=== PATIENT | male | born 1965 | race Caucasian/White ===

== ENCOUNTER → 2016-09-09 | Outpatient (CLI) | payer OTHER | LOC: RAD 08:00 | DX: M54.5 Low back pain (principal); M47.896 Other spondylosis, lumbar region; Z91.81 History of falling | CPT/HCPCS: 72148 ==

== ENCOUNTER → 2017-11-05 | Outpatient (CLI) | payer OTHER ==
[2017-11-05 08:15] LABS: ABSOLUTE BASOPHILS # (AUTO) 0.1 10^3/uL (0.0-0.2); ABSOLUTE EOSINOPHILS # (AUTO) 0.1 10^3/uL (0.0-0.6); ABSOLUTE LYMPHOCYTES (AUTO) 1.6 10^3/uL (0.5-4.7); ABSOLUTE MONOCYTES (AUTO) 0.6 10^3/uL (0.1-1.4); ABSOLUTE NEUT (AUTO) 3.6 10^3/uL (1.7-8.2); BASOPHILS % (AUTO) 0.9 % (0-2); EOSINOPHILS % (AUTO) 2.3 % (0-6); HEMATOCRIT 41.6 % (37.9-51.0); HEMOGLOBIN 13.8 g/dL (13.5-17.0); LYMPHOCYTES % (AUTO) 26.3 % (13-45); MEAN CORPUSCULAR HGB CONC 33.1 g/dL (32.0-36.0); MEAN CORPUSCULAR VOLUME 81 fl (80-97); MONOCYTES % (AUTO) 10.6 % (3-13); PLATELET COUNT 244 10^3/uL (150-450); RED BLOOD COUNT 5.11 10^6/uL (4.35-5.55); RED CELL DISTRIBUTION WIDTH 18.7 % (11.5-14.0); SEGMENTED NEUTROPHILS % (AUTO) 59.9 % (42-78); TOTAL CELLS COUNTED % (AUTO) 100 %; WHITE BLOOD COUNT 5.9 10^3/uL (4.0-10.5)
[2017-11-05 08:40] LABS: ANION GAP 13 (5-19); BLOOD UREA NITROGEN 8 mg/dL (7-20); CARBON DIOXIDE 30 mmol/L (22-30); CHLORIDE 99 mmol/L (98-107); GLUCOSE 87 mg/dL (75-110); POTASSIUM 4.3 mmol/L (3.6-5.0); SODIUM 142.3 mmol/L (137-145); URIC ACID 4.5 mg/dL (3.5-8.5)
[2017-11-05 08:41] LABS: CHOLESTEROL 237.05 mg/dL (0-200); TRIGLYCERIDES 163 mg/dL (<150)
[2017-11-05 08:51] LABS: DIRECT LDL 112 mg/dL (<100)
[2017-11-05 08:53] LABS: VLDL CHOLESTEROL 32.6 mg/dL (10-31)
== END ==
LOC: CCC 07:08
DX: J44.9 Chronic obstructive pulmonary disease, unspecified (principal); I10 Essential (primary) hypertension; E78.5 Hyperlipidemia, unspecified
CPT/HCPCS: 36415; 80048; 80061; 83036; 84443; 84550; 85025

== ENCOUNTER → 2017-12-25 | Outpatient (CLI) | payer OTHER ==
[~2017-12-25] MED LIST: ALBUTEROL SULFATE 0.083% NEB 2.5 MG/3 ML AMPUL NEB ONE
--- NOTE | 2017-12-25 11:46 | RADIOLOGY REPORT (SQ) ---
EXAM DESCRIPTION: CHEST 2 VIEWS COMPLETED DATE/TIME: 12/25/2017 8:38 am REASON FOR STUDY: COPD (J44.9) COMPARISON: July 2015 EXAM PARAMETERS: NUMBER OF VIEWS: two views TECHNIQUE: Digital Frontal and Lateral radiographic views of the chest acquired. RADIATION DOSE: NA LIMITATIONS: none FINDINGS: LUNGS AND PLEURA: No opacities, masses or pneumothorax. No pleural effusion. Previously d escribed chronic appearing changes appears stable. Again there is evidence for obstructive lung dise ase. MEDIASTINUM AND HILAR STRUCTURES: No masses or contour abnormalities. HEART AND VASCULAR STRUCTURES: Heart normal size. No evidence for failure. BONES: No acute findings. HARDWARE: None in the chest. OTHER: No other significant finding. IMPRESSION: No significant interval change. No acute findings. Other findings as noted above. TECHNICAL DOCUMENTATION: JOB ID: [id number] [employer]- All Rights Reserved Reading location - IP/workstation name: [email or web address]
--- NOTE | 2017-12-26 14:43 | Pulmonary Function Test ---
Pulmonary Function Test Date of Procedure:: 12/26/17 INDICATION:: Dyspnea/cough Referring Provider: Dr. Steele Top Loader: Quita Lyles COLLECTIONS SPECIALIST - Report Spirometry: FVC 3.18 L 72% postbronchodilator 3.36 L 76% FEV1 0.75 L 21% postbronchodilator 0.93 L 26% FEV1/FVC % 23 postbronchodilator 28 predicted 81 FEF 25-75% 0.26 L 7% postbronchodilator 0.35 L 9% Impression: Severe obstructive ventilatory defect with limited response to bronchodilator therapy.
== END ==
LOC: RT 07:26
PROVIDERS: ATTEND Family Medicine
DX: J44.9 Chronic obstructive pulmonary disease, unspecified (principal)
CPT/HCPCS: 71046; 94060; 94761

== ENCOUNTER 2018-06-05 18:21 | Inpatient (IN) | payer MEDICARE, OTHER ==
[~2018-06-05 18:21] MED LIST changes: -ALBUTEROL SULFATE 0.083% NEB 2.5 MG/3 ML AMPUL NEB ONE; +NORMAL SALINE 1000 ML 1,000 ML with POTASSIUM CHLORIDE 20 MEQ, MAGNESIUM SULFATE 8 MEQ,... IV SCH; +THIAMINE HCL 500 MG in NORMAL SALINE 250 ML IV SCH
[2018-06-05] MEDS ORDERED: NORMAL SALINE 1000 ML 1,000 ML IV ONE ×3 (19:13→21:00)
[2018-06-05] MEDS ORDERED: ALBUTEROL SULFATE 0.083% NEB 2.5 MG/3 ML AMPUL NEB ONE ×2 (19:14→21:00)
[2018-06-05] MEDS ORDERED: IPRATROPIUM/ALBUTEROL 0.5-2.5 MG/3 ML AMPUL NEB ONE ×2 (19:14→21:00)
--- NOTE | 2018-06-05 19:32 | ER Document Report ---
ED General - General Chief Complaint: Breathing Difficulty Stated Complaint: WEAKNESS Time Seen by Provider: 06/05/18 19:08 Mode of Arrival: Stretcher Information source: Patient, Relative TRAVEL OUTSIDE OF THE [place] IN LAST 30 DAYS: No - HPI Patient complains to provider of: Difficult to arouse, difficulty breathing, EtOH intoxication Onset: Just prior to arrival Quality of pain: No pain Notes: Patient is a 53-year-old male brought to the emergency room by EMS after family found him unresponsive, they attempted to awaken him several times and apparently thought he was because they could not wake him up, on EMS arrival patient was noted to have a pulse ox of 80%, BP 90/60, BGL of 84, and there was a multitude of alcohol present in the home, patient is also a smoker - Related Data Allergies/Adverse Reactions: No Known Allergies Allergy (Unverified 06/23/16 21:48) Past Medical History - General Information source: Patient - Social History Smoking Status: Current Every Day Smoker Frequency of alcohol use: Heavy Drug Abuse: Marijuana Family History: None Patient has suicidal ideation: No Patient has homicidal ideation: No - Past Medical History Cardiac Medical History: Reports: Hx Hypertension Pulmonary Medical History: Reports: Hx COPD Renal/ Medical History: Denies: Hx Peritoneal Dialysis Review of Systems - Review of Systems Constitutional: No symptoms reported EENT: No symptoms reported Cardiovascular: No symptoms reported Respiratory: See HPI Gastrointestinal: No symptoms reported Genitourinary: No symptoms reported Male Genitourinary: No symptoms reported Musculoskeletal: No symptoms reported Skin: No symptoms reported Hematologic/Lymphatic: No symptoms reported Neurological/Psychological: See HPI -: Yes All other systems reviewed and negative Physical Exam - Vital signs Vitals: Temp Pulse Resp BP Pulse Ox 97.6 F 107 H 20 113/69 91 L 06/05/18 18:28 06/05/18 18:28 06/05/18 18:28 06/05/18 18:28 06/05/18 18:28 Interpretation: Hypotensive, Tachycardic, Hypoxic - General General appearance: Alert In distress: None Notes: Disheveled, EtOH on breath - HEENT Head: Normocephalic, Atraumatic Eyes: Normal Conjunctiva: Normal Extraocular movements intact: Yes Eyelashes: Normal Pupils: PERRL Nasal: Other - Abrasions to nasal bridge - Respiratory Respiratory status: No respiratory distress Chest status: Nontender Breath sounds: Nonproductive cough, Rhonchi, Wheezing Chest palpation: Normal - Cardiovascular Rhythm: Regular, Tachycardia Heart sounds: Normal auscultation Murmur: No - Abdominal Inspection: Normal Distension: No distension Bowel sounds: Normal Tenderness: Nontender Organomegaly: No organomegaly - Back Back: Normal, Nontender - Extremities General upper extremity: Normal inspection, Nontender, Normal color, Normal ROM , Normal temperature General lower extremity: Normal inspection, Nontender, Normal color, Normal ROM , Normal temperature, Normal weight bearing. No: Kim's sign - Neurological Neuro grossly intact: Yes Cognition: Normal Orientation: Disoriented to events [place] Coma Scale Eye Opening: Spontaneous [place] Coma Scale Verbal: Oriented [place] Coma Scale Motor: Obeys Commands Donna Coma Scale Total: 15 Speech: Normal Motor strength normal: LUE, RUE, LLE, RLE Sensory: Normal - Psychological Associated symptoms: Normal affect, Normal mood - Skin Skin Temperature: Warm Skin Moisture: Dry Skin Color: Other - Dark leathery appearing skin Course - Re-evaluation Re-evalutation: 06/05/18 22:34 Patient continues to have wheezing, requires oxygen to maintain oxygen saturations above 90%, and remains borderline hypotensive despite multiple fluid bolus treatments, therefore discussed with the hospitalist service who agrees to admit for further evaluation and treatment, plan discussed with patient and family at bedside who are in agreement as well - Vital Signs Vital signs: Temp Pulse Resp BP Pulse Ox 97.6 F 107 H 20 113/69 91 L 06/05/18 18:28 06/05/18 18:28 06/05/18 18:28 06/05/18 18:28 06/05/18 18:28 - Laboratory Result Diagrams: 06/05/18 19:40 06/05/18 19:40 Laboratory results interpreted by me: 06/05/18 06/05/18 06/05/18 19:40 19:40 19:40 RDW 16.5 H Seg Neutrophils % 81.3 H Lymphocytes % 11.1 L Creatinine 1.49 H Est GFR ( Amer) 59 L Est GFR (Non-Af Amer) 49 L Lactic Acid 3.3 H AST 77 H - Diagnostic Test Radiology reviewed: Image reviewed, Reports reviewed - EKG Interpretation by Me EKG shows normal: Sinus rhythm Rate: Tachycardia Critical Care Note - Critical Care Note Total time excluding time spent on procedures (mins): 60 Comments: Patient hypotensive, hypoxic, decreased responsiveness, requiring multiple breathing treatments, multiple IV fluid boluses and admission Discharge - Discharge Clinical Impression: COPD exacerbation, Acute alcohol intoxication, Alcohol dependence, Decreased responsiveness, Nasal bone fracture Condition: Fair Disposition: ADMITTED INPATIENT Admitting Provider: Hospitalist Unit Admitted: [facility]
--- NOTE | 2018-06-05 20:03 | RADIOLOGY REPORT (SQ) ---
EXAM DESCRIPTION: CHEST SINGLE VIEW COMPLETED DATE/TIME: 06/05/2018 7:54 pm REASON FOR STUDY: db COMPARISON: 12/25/2017 EXAM PARAMETERS: NUMBER OF VIEWS: One view. TECHNIQUE: Single frontal radiographic view of the chest acquired. RADIATION DOSE: NA LIMITATIONS: None. FINDINGS: LUNGS AND PLEURA: Chronic interstitial changes. No acute infiltrate. No effusion. No ma ss. MEDIASTINUM AND HILAR STRUCTURES: No masses. Contour normal. HEART AND VASCULAR STRUCTURES: Heart normal in size. Normal vasculature. BONES: No acute findings. HARDWARE: None in the chest. OTHER: No other significant finding. IMPRESSION: Chronic lung changes with no acute cardiopulmonary findings. TECHNICAL DOCUMENTATION: JOB ID: [id number] [employer]- All Rights Reserved Reading location - IP/workstation name: [email or web address]
[2018-06-05 20:12] LABS: ABSOLUTE LYMPHOCYTES (AUTO) 1.1 10^3/uL (0.5-4.7); ABSOLUTE MONOCYTES (AUTO) 0.7 10^3/uL (0.1-1.4); ABSOLUTE NEUT (AUTO) 7.8 10^3/uL (1.7-8.2); BASOPHILS % (AUTO) 0.3 % (0-2); EOSINOPHILS % (AUTO) 0.1 % (0-6); HEMATOCRIT 45.6 % (37.9-51.0); HEMOGLOBIN 15.3 g/dL (13.5-17.0); LYMPHOCYTES % (AUTO) 11.1 % (13-45); MEAN CORPUSCULAR HEMOGLOBIN 30.1 pg (27.0-33.4); MEAN CORPUSCULAR HGB CONC 33.6 g/dL (32.0-36.0); MEAN CORPUSCULAR VOLUME 90 fl (80-97); MONOCYTES % (AUTO) 7.2 % (3-13); PLATELET COUNT 234 10^3/uL (150-450); RED BLOOD COUNT 5.09 10^6/uL (4.35-5.55); RED CELL DISTRIBUTION WIDTH 16.5 % (11.5-14.0); SEGMENTED NEUTROPHILS % (AUTO) 81.3 % (42-78); TOTAL CELLS COUNTED % (AUTO) 100 %; WHITE BLOOD COUNT 9.6 10^3/uL (4.0-10.5)
[2018-06-05 20:16] LABS: VENOUS BLOOD BASE EXCESS 1.2 mmol/L; VENOUS BLOOD HCO3 28.6 mmol/L (20-32); VENOUS BLOOD PCO2 55.6 mmHg (35-63); VENOUS BLOOD PH 7.33 (7.30-7.42)
[2018-06-05 20:19] LABS: INTERNATIONAL RATION (INR) 0.95; PROTHROMBIN TIME 13.1 SEC (11.4-15.4)
[2018-06-05 20:30] LABS: ALANINE AMINOTRANSFERASE 43 U/L (21-72); ALBUMIN 3.8 g/dL (3.5-5.0); ALKALINE PHOSPHATASE 111 U/L (38-126); ANION GAP 16 (5-19); ASPARTATE AMINO TRANSFERASE 77 U/L (17-59); BILIRUBIN,DIRECT 0.4 mg/dL (0.0-0.4); BILIRUBIN,TOTAL 0.6 mg/dL (0.2-1.3); BLOOD UREA NITROGEN 7 mg/dL (7-20); CALCIUM 8.5 mg/dL (8.4-10.2); CARBON DIOXIDE 29 mmol/L (22-30); CHLORIDE 98 mmol/L (98-107); GLUCOSE 89 mg/dL (75-110); POTASSIUM 4.2 mmol/L (3.6-5.0); SODIUM 142.7 mmol/L (137-145); TOTAL PROTEIN 7.4 g/dL (6.3-8.2)
[2018-06-05 20:30] LABS: APPEARANCE,URINE CLEAR; BILIRUBIN,URINE NEGATIVE (NEGATIVE); COLOR,URINE COLORLESS; GLUCOSE, URINE NEGATIVE (NEGATIVE); KETONES,URINE NEGATIVE (NEGATIVE); LEUKOCYTE ESTERASE,URINE NEGATIVE (NEGATIVE); NITRITE,URINE NEGATIVE (NEGATIVE); PROTEIN,URINE NEGATIVE (NEGATIVE); URINE SPECIFIC GRAVITY 1.002; UROBILINOGEN,URINE NEGATIVE mg/dL (<2.0)
[2018-06-05] MEDS ORDERED: METHYLPREDNISOLONE INJ 125 MG/2 ML SDV IV ONE (21:00)
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
[2018-06-05] MEDS ORDERED: TETANUS/DIPHTHERIA TOX-ADULT 0.5 ML SYR (>=7YO) IM ONE (22:24)
[2018-06-05] MEDS ORDERED: PROMETHAZINE HCL 25 MG TABLET PO PRN (23:03)
[2018-06-05] MEDS ORDERED: TEMAZEPAM 15 MG CAPSULE PO PRN (23:03)
[2018-06-05] MEDS ORDERED: METOCLOPRAMIDE HCL INJ/PF 10 MG/2 ML SDV IV PRN (23:03)
[2018-06-05] MEDS ORDERED: PANTOPRAZOLE SODIUM 40 MG VIAL IV STA (23:03)
[2018-06-05] MEDS ORDERED: ACETAMINOPHEN 325 MG TABLET PO PRN (23:03)
[2018-06-05] MEDS ORDERED: MAG HYDROX/AL HYDROX/SIMETH SUSP 30 ML UDCUP PO PRN (23:03)
[2018-06-05 23:23] LABS: URINE AMPHETAMINES SCREEN NEGATIVE; URINE BARBITURATES SCREEN NEGATIVE; URINE BENZODIAZEPINES SCREEN NEGATIVE; URINE COCAINE SCREEN NEGATIVE; URINE MARIJUANA (THC) SCREEN UNCONFIRMED POSITIVE; URINE METHADONE SCREEN NEGATIVE; URINE PHENCYCLIDINE SCREEN NEGATIVE
[2018-06-05] MEDS: LORAZEPAM INJ 2 MG/1 ML VIAL IV PRN (23:31)
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
[2018-06-06] MEDS ORDERED: NICOTINE 21 MG/24 HR PATCH.TD24 TD ONE (00:15)
[2018-06-06] MEDS: NORMAL SALINE 1000 ML 1,000 ML IV PRN ×3 (00:44→13:14)
[2018-06-06] MEDS ORDERED: THIAMINE HCL INJ 200 MG/2 ML VIAL IV PRN (01:06)
[2018-06-06] MEDS ORDERED: THIAMINE HCL IV ONE (01:15)
[2018-06-06] MEDS ORDERED: THIAMINE HCL 500 MG in NORMAL SALINE 250 ML IV ONE (01:15)
[2018-06-06] MEDS ORDERED: NORMAL SALINE IV ONE (01:15)
[2018-06-06] MEDS: HEPARIN SOD (PORCINE) 5,000 UNIT/ML 1 ML SYRINGE SUBCUT SCH ×3 (05:47→21:05)
[2018-06-06] MEDS: LORAZEPAM INJ 2 MG/1 ML VIAL IV PRN ×4 (05:51→19:43)
[2018-06-06 05:56] LABS: ABSOLUTE LYMPHOCYTES (AUTO) 0.3 10^3/uL (0.5-4.7); ABSOLUTE NEUT (AUTO) 3.6 10^3/uL (1.7-8.2); BASOPHILS % (AUTO) 0.1 % (0-2); HEMATOCRIT 37.8 % (37.9-51.0); LYMPHOCYTES % (AUTO) 7.3 % (13-45); MEAN CORPUSCULAR HEMOGLOBIN 30.2 pg (27.0-33.4); MEAN CORPUSCULAR HGB CONC 33.4 g/dL (32.0-36.0); MEAN CORPUSCULAR VOLUME 91 fl (80-97); MONOCYTES % (AUTO) 0.6 % (3-13); PLATELET COUNT 155 10^3/uL (150-450); RED BLOOD COUNT 4.17 10^6/uL (4.35-5.55); RED CELL DISTRIBUTION WIDTH 16.8 % (11.5-14.0); TOTAL CELLS COUNTED % (AUTO) 100 %; WHITE BLOOD COUNT 3.9 10^3/uL (4.0-10.5)
[2018-06-06 05:57] LABS: HEMOGLOBIN 12.6 g/dL (13.5-17.0); PROTHROMBIN TIME 13.7 SEC (11.4-15.4)
[2018-06-06 05:58] LABS: PARTIAL THROMBOPLASTIN TIME 30.2 SEC (23.5-35.8)
[2018-06-06 06:06] LABS: ALANINE AMINOTRANSFERASE 34 U/L (21-72); ALBUMIN 3.1 g/dL (3.5-5.0); ALKALINE PHOSPHATASE 75 U/L (38-126); ANION GAP 17 (5-19); ASPARTATE AMINO TRANSFERASE 57 U/L (17-59); BILIRUBIN,DIRECT 0.3 mg/dL (0.0-0.4); BILIRUBIN,TOTAL 0.5 mg/dL (0.2-1.3); BLOOD UREA NITROGEN 9 mg/dL (7-20); CALCIUM 7.3 mg/dL (8.4-10.2); CHLORIDE 107 mmol/L (98-107); GLUCOSE 109 mg/dL (75-110); POTASSIUM 4.2 mmol/L (3.6-5.0); SODIUM 140.7 mmol/L (137-145); TOTAL PROTEIN 6.2 g/dL (6.3-8.2)
[2018-06-06 06:24] LABS: CARBON DIOXIDE 17 mmol/L (22-30)
--- NOTE | 2018-06-06 07:55 | EKG REPORT ---
SEVERITY:- ABNORMAL ECG - SINUS TACHYCARDIA ANTERIOR INFARCT, OLD BORDERLINE PROLONGED QT INTERVAL : Confirmed by: Vinicio Stevens MD 06-Jun-2018 07:54:12
[2018-06-06] MEDS ORDERED: FOLIC ACID 1 MG TABLET PO SCH (10:00)
[2018-06-06] MEDS ORDERED: MULTIVITAMIN TABLET PO SCH (10:00)
[2018-06-06] MEDS ORDERED: THIAMINE HCL 100 MG TABLET PO SCH (10:00)
--- NOTE | 2018-06-06 10:11 | PDOC PROGRESS REPORT ---
Subjective Progress Note for:: 06/06/18 Subjective:: -year-old male admitted with hypoxia pulse ox was in the 80s in the ER he was also found to be in acute renal failure. He has chronic history of smoking and alcohol use. No acute episodes last night patient is comfortably in the bed smiling eating his breakfast. Reason For Visit: ACUTE RENAL FAILURE, DEHYDRATION, ACUTE ALCOHOL Physical Exam Vital Signs: Temp Pulse Resp BP Pulse Ox 97.8 F 110 H 20 90/61 L 94 06/06/18 02:51 06/06/18 07:00 06/06/18 02:51 06/06/18 02:51 06/06/18 02:51 Intake & Output 06/05/18 06/06/18 06/07/18 06:59 06:59 06:59 Intake Total 4170 Output Total 250 Balance 3920 Weight 72.9 kg General appearance: PRESENT: no acute distress Head exam: PRESENT: atraumatic Eye exam: PRESENT: PERRLA Neck exam: ABSENT: carotid bruit, JVD, lymphadenopathy, thyromegaly Respiratory exam: PRESENT: crackles, tachypnea, wheezes Cardiovascular exam: PRESENT: RRR. ABSENT: diastolic murmur, rubs, systolic murmur GI/Abdominal exam: PRESENT: normal bowel sounds, soft. ABSENT: distended, guarding, mass, organolmegaly, rebound, tenderness Neurological exam: PRESENT: alert, awake, oriented to person, oriented to place , oriented to time, oriented to situation, CN II-XII grossly intact. ABSENT: motor sensory deficit Psychiatric exam: PRESENT: appropriate affect, normal mood. ABSENT: homicidal ideation, suicidal ideation Results Laboratory Results: 06/06/18 05:33 06/06/18 05:33 06/05/18 06/06/18 06/06/18 23:42 05:33 05:33 WBC 3.9 L RBC 4.17 L Hgb 12.6 L D Hct 37.8 L MCV 91 MCH 30.2 MCHC 33.4 RDW 16.8 H Plt Count 155 Seg Neutrophils % 92.0 H Lymphocytes % 7.3 L Monocytes % 0.6 L Eosinophils % 0.0 Basophils % 0.1 Absolute Neutrophils 3.6 Absolute Lymphocytes 0.3 L Absolute Monocytes 0.0 L Absolute Eosinophils 0.0 Absolute Basophils 0.0 Sodium 140.7 Potassium 4.2 Chloride 107 Carbon Dioxide 17 L D Anion Gap 17 BUN 9 Creatinine 1.03 Est GFR ( Amer) > 60 Est GFR (Non-Af Amer) > 60 Glucose 109 Lactic Acid 5.2 H Calcium 7.3 L Phosphorus 4.0 Magnesium 1.5 L Total Bilirubin 0.5 AST 57 ALT 34 Alkaline Phosphatase 75 Total Protein 6.2 L Albumin 3.1 L 06/06/18 05:33 WBC RBC Hgb Hct MCV MCH MCHC RDW Plt Count Seg Neutrophils % Lymphocytes % Monocytes % Eosinophils % Basophils % Absolute Neutrophils Absolute Lymphocytes Absolute Monocytes Absolute Eosinophils Absolute Basophils Sodium Potassium Chloride Carbon Dioxide Anion Gap BUN Creatinine Est GFR ( Amer) Est GFR (Non-Af Amer) Glucose Lactic Acid 3.9 H Calcium Phosphorus Magnesium Total Bilirubin AST ALT Alkaline Phosphatase Total Protein Albumin Impressions: Chest X-Ray 06/05/18 19:13 IMPRESSION: Chronic lung changes with no acute cardiopulmonary findings. Head CT 06/05/18 21:00 IMPRESSION: Possible nasal bone fracture. Please correlate clinically. No skull fracture. No intracranial bleed. TECHNICAL DOCUMENTATION: Quality ID # [id number]: Final reports with documentation of one or more dose reduction techniques (e.g., Automated exposure control, adjustment of the mA and/or kV according to patient size, use of iterative reconstruction technique) copyright 2011 [employer]- All Rights Reserved Assessment & Plan - Diagnosis (1) Acute respiratory failure with hypoxia Is this a current diagnosis for this admission?: Yes Plan: 06/06/2018 patient was found to be unresponsive with O2 saturation of 80%. He is on nebulizations and as-needed basis on 2 L oxygen via nasal cannula pulse ox 's are much improved in the 90s today. He is a chronic smoker. He is also on IV Solu-Medrol. He is also on incentive spirometry. (2) Acute alcohol intoxication Qualifiers: Complication of substance-induced condition: uncomplicated Qualified Code(s ): F10.929 - Alcohol use, unspecified with intoxication, unspecified Is this a current diagnosis for this admission?: Yes Plan: 06/06/2018 patient has a long history of heavy alcohol use he was found to be unconscious before brought to the emergency room and his serum alcohol levels are 289 in the emergency room he was started on a banana bag today. He is also on IV Ativan as needed for alcohol withdrawal symptoms. So far no withdrawal symptoms. (3) COPD exacerbation Is this a current diagnosis for this admission?: Yes Plan: 06/06/2018 patient has chronic history of COPD secondary to chronic smoking. He he was found to be in acute respiratory failure in the ER. Presently he is on IV Solu-Medrol 120 mg. Getting nebulizer treatment every 3 to hours as needed and incentive spirometry. He was on prophylactic antibiotic azithromycin. (4) Acute renal failure Qualifiers: Acute renal failure type: unspecified Qualified Code(s): N17.9 - Acute kidney failure, unspecified Is this a current diagnosis for this admission?: Yes Plan: Patient was told found to be in acute renal failure in the ER. At the time of admission creatinine is 1.49. With IV fluids it is improved to 1.03. She is still hypotensive. Blood pressure is 90/60. (5) Lactic acidosis Is this a current diagnosis for this admission?: Yes Plan: 06/06/2018 initial lactic acid is 3.3 and lactic acid level is 5.2 on third is .3.9. (6) Tobacco dependence Is this a current diagnosis for this admission?: Yes Plan: 2017 patient is a chronic smoker, smokes at least 1 pack/day. Smoking cessation counseling was provided for more than 10 minutes. - Time Time Spent with patient: 15-24 minutes Medications reviewed and adjusted accordingly: Yes Anticipated discharge: Home
[2018-06-06] MEDS: AZITHROMYCIN 250 MG TABLET PO SCH (10:22)
[2018-06-06] MEDS: NICOTINE 21 MG/24 HR PATCH.TD24 TD SCH (10:22)
[2018-06-06] MEDS: IPRATROPIUM/ALBUTEROL 0.5-2.5 MG/3 ML AMPUL NEB PRN (11:00)
[2018-06-06] MEDS: NORMAL SALINE 1000 ML 1,000 ML with POTASSIUM CHLORIDE 20 MEQ, MAGNESIUM SULFATE 8 MEQ,... IV SCH ×5 (17:31)
[2018-06-07] MEDS: LORAZEPAM INJ 2 MG/1 ML VIAL IV PRN ×3 (00:47→14:35)
[2018-06-07] MEDS ORDERED: METOPROLOL TARTRATE PF/INJ 5 MG/5 ML SDV IV PRN (04:20)
[2018-06-07] MEDS: DIAZEPAM 5 MG TABLET PO SCH ×2 (05:12→14:34)
[2018-06-07] MEDS: HEPARIN SOD (PORCINE) 5,000 UNIT/ML 1 ML SYRINGE SUBCUT SCH ×2 (05:12→14:39)
[2018-06-07 05:56] LABS: ABSOLUTE LYMPHOCYTES (AUTO) 1.4 10^3/uL (0.5-4.7); ABSOLUTE MONOCYTES (AUTO) 0.6 10^3/uL (0.1-1.4); ABSOLUTE NEUT (AUTO) 4.6 10^3/uL (1.7-8.2); BASOPHILS % (AUTO) 0.3 % (0-2); EOSINOPHILS % (AUTO) 0.2 % (0-6); HEMATOCRIT 35.7 % (37.9-51.0); LYMPHOCYTES % (AUTO) 20.9 % (13-45); MEAN CORPUSCULAR HEMOGLOBIN 30.6 pg (27.0-33.4); MEAN CORPUSCULAR HGB CONC 33.7 g/dL (32.0-36.0); MEAN CORPUSCULAR VOLUME 91 fl (80-97); MONOCYTES % (AUTO) 8.5 % (3-13); PLATELET COUNT 122 10^3/uL (150-450); RED BLOOD COUNT 3.92 10^6/uL (4.35-5.55); RED CELL DISTRIBUTION WIDTH 16.3 % (11.5-14.0); SEGMENTED NEUTROPHILS % (AUTO) 70.1 % (42-78); TOTAL CELLS COUNTED % (AUTO) 100 %; WHITE BLOOD COUNT 6.5 10^3/uL (4.0-10.5)
[2018-06-07 06:29] LABS: ALANINE AMINOTRANSFERASE 28 U/L (21-72); ALBUMIN 2.7 g/dL (3.5-5.0); ALKALINE PHOSPHATASE 83 U/L (38-126); ANION GAP 10 (5-19); ASPARTATE AMINO TRANSFERASE 56 U/L (17-59); BILIRUBIN,DIRECT 0.2 mg/dL (0.0-0.4); BILIRUBIN,TOTAL 0.6 mg/dL (0.2-1.3); BLOOD UREA NITROGEN 12 mg/dL (7-20); CALCIUM 8.1 mg/dL (8.4-10.2); CARBON DIOXIDE 25 mmol/L (22-30); CHLORIDE 105 mmol/L (98-107); GLUCOSE 91 mg/dL (75-110); SODIUM 140.1 mmol/L (137-145); TOTAL PROTEIN 5.6 g/dL (6.3-8.2)
[2018-06-07] MEDS: NICOTINE 21 MG/24 HR PATCH.TD24 TD SCH (09:02)
[2018-06-07] MEDS: AZITHROMYCIN 250 MG TABLET PO SCH (09:02)
[2018-06-07] MEDS ORDERED: HALOPERIDOL 5 MG TABLET PO PRN (09:24)
--- NOTE | 2018-06-07 09:37 | PDOC PROGRESS REPORT ---
Subjective Progress Note for:: 06/07/18 Subjective:: 06/06/2018 53-year-old male admitted with hypoxia pulse ox was in the 80s in the ER he was also found to be in acute renal failure. He has chronic history of smoking and alcohol use. No acute episodes last night patient is comfortably in the bed smiling eating his breakfast. 06/07/2018 53-year-old male admitted with alcohol withdrawals and acute renal failure. His creatinine was 0.65. Last night patient was agitated and he was started on diazepam 10 mg. P.o. every 8 hours in addition to the medications already getting 2 mg of Ativan IV every 4 as needed. This morning he was agitated and anxious and not communicating well but is alert and awake. #1 to start him on Haldol 5 mg p.o. every 8 hours as needed. Blood cultures are growing gram-positive cocci in 1 bottle. Reason For Visit: ACUTE RENAL FAILURE, DEHYDRATION, ACUTE ALCOHOL Physical Exam Vital Signs: Temp Pulse Resp BP Pulse Ox 97.4 F 102 H 23 H 168/99 H 96 06/07/18 04:34 06/07/18 04:34 06/07/18 04:34 06/07/18 04:34 06/07/18 04:34 Intake & Output 06/06/18 06/07/18 06/08/18 06:59 06:59 06:59 Intake Total 1597 1023 Output Total 550 Balance 1597 473 Weight 76 kg General appearance: PRESENT: mild distress Head exam: PRESENT: atraumatic Eye exam: PRESENT: PERRLA Neck exam: ABSENT: carotid bruit, JVD, lymphadenopathy, thyromegaly Respiratory exam: PRESENT: decreased breath sounds, rales, tachypnea, wheezes Cardiovascular exam: PRESENT: tachycardia GI/Abdominal exam: PRESENT: normal bowel sounds, soft. ABSENT: distended, guarding, mass, organolmegaly, rebound, tenderness Neurological exam: PRESENT: other - Patient is confused, anxious, mildly agitated, may be he is getting into DTs. Psychiatric exam: PRESENT: anxious Results Laboratory Results: 06/07/18 04:48 06/07/18 04:48 06/07/18 06/07/18 04:48 04:48 WBC 6.5 RBC 3.92 L Hgb 12.0 L Hct 35.7 L MCV 91 MCH 30.6 MCHC 33.7 RDW 16.3 H Plt Count 122 L Seg Neutrophils % 70.1 Lymphocytes % 20.9 Monocytes % 8.5 Eosinophils % 0.2 Basophils % 0.3 Absolute Neutrophils 4.6 Absolute Lymphocytes 1.4 Absolute Monocytes 0.6 Absolute Eosinophils 0.0 Absolute Basophils 0.0 Sodium 140.1 Potassium 4.0 Chloride 105 Carbon Dioxide 25 Anion Gap 10 BUN 12 Creatinine 0.65 Est GFR ( Amer) > 60 Est GFR (Non-Af Amer) > 60 Glucose 91 Calcium 8.1 L Magnesium 2.1 Total Bilirubin 0.6 AST 56 ALT 28 Alkaline Phosphatase 83 Total Protein 5.6 L Albumin 2.7 L Impressions: Chest X-Ray 06/05/18 19:13 IMPRESSION: Chronic lung changes with no acute cardiopulmonary findings. Head CT 06/05/18 21:00 IMPRESSION: Possible nasal bone fracture. Please correlate clinically. No skull fracture. No intracranial bleed. TECHNICAL DOCUMENTATION: Quality ID # [id number]: Final reports with documentation of one or more dose reduction techniques (e.g., Automated exposure control, adjustment of the mA and/or kV according to patient size, use of iterative reconstruction technique) copyright 2010 [employer]- All Rights Reserved Assessment & Plan - Diagnosis (1) Acute alcohol intoxication Qualifiers: Complication of substance-induced condition: uncomplicated Qualified Code(s ): F10.929 - Alcohol use, unspecified with intoxication, unspecified Is this a current diagnosis for this admission?: Yes Plan: 06/06/2018 patient has a long history of heavy alcohol use he was found to be unconscious before brought to the emergency room and his serum alcohol levels are 289 in the emergency room he was started on a banana bag today. He is also on IV Ativan as needed for alcohol withdrawal symptoms. So far no withdrawal symptoms. 06/07/2018 patient has chronic history of heavy alcohol use he was in IV Ativan 2 mg every 4 hours as needed, was started on diazepam 10 mg p.o. every 8 hours. Last night and this morning patient is still agitated and anxious I started him on Haldol 5 mg p.o. every 8 hours as needed. Will closely monitor the mental status. The alcohol level in the emergency room is 289. (2) Acute respiratory failure with hypoxia Is this a current diagnosis for this admission?: Yes Plan: 06/06/2018 patient was found to be unresponsive with O2 saturation of 80%. He is on nebulizations and as-needed basis on 2 L oxygen via nasal cannula pulse ox 's are much improved in the 90s today. He is a chronic smoker. He is also on IV Solu-Medrol. He is also on incentive spirometry. 06/07/2018 on examination today patient chest bilateral wheezing is present, decreased bilateral air entry, rales. He is on nebulizations every 4 as needed. He is on ipratropium/albuterol sulfate nebulizations. I am going to put him on IV Solu-Medrol 60 mg every 12 hours. (3) COPD exacerbation Is this a current diagnosis for this admission?: Yes Plan: 06/06/2018 patient has chronic history of COPD secondary to chronic smoking. He he was found to be in acute respiratory failure in the ER. Presently he is on IV Solu-Medrol 120 mg. Getting nebulizer treatment every 3 to hours as needed and incentive spirometry. He was on prophylactic antibiotic azithromycin. 06/07/2018 patient has history of COPD secondary to smoking his pulse ox are low in the emergency room in acute on chronic respiratory failure in the ER he is getting nebulizations every 4 as needed and incentive spirometry. I started him on IV Rocephin 1 g daily today. (4) Acute renal failure Qualifiers: Acute renal failure type: unspecified Qualified Code(s): N17.9 - Acute kidney failure, unspecified Is this a current diagnosis for this admission?: Yes Plan: Patient was told found to be in acute renal failure in the ER. At the time of admission creatinine is 1.49. With IV fluids it is improved to 1.03. She is still hypotensive. Blood pressure is 90/60. 06/07/2018 on admission creatinine is 1.49. He was started on IV fluids. Blood pressure is elevated 168/99. At this point he is on normal saline at 150 cc/h. Creatinine is 0.65. Acute renal failure is resolved. I decreased IV fluids to 50 cc/h. (5) Lactic acidosis Is this a current diagnosis for this admission?: Yes Plan: 06/06/2018 initial lactic acid is 3.3 and lactic acid level is 5.2 on third is .3.9. 06/07/2018 latest lactic acid level is 3.7. I started him on IV Rocephin 1 g daily today. He is afebrile. The blood cultures 1 bottle shows gram-positive cocci. (6) Tobacco dependence Is this a current diagnosis for this admission?: Yes Plan: 06/06/2018 patient is a chronic smoker, smokes at least 1 pack/day. Smoking cessation counseling was provided for more than 10 minutes. 06/07/2018. Patient is a long chronic history of smoking. Smoking counseling was provided today. - Time Time Spent with patient: 15-24 minutes Medications reviewed and adjusted accordingly: Yes Anticipated discharge: Home
[2018-06-07] MEDS: IPRATROPIUM/ALBUTEROL 0.5-2.5 MG/3 ML AMPUL NEB PRN ×3 (09:49→20:42)
[2018-06-07] MEDS ORDERED: CEFTRIAXONE INJ 1000 MG VIAL IV SCH (10:00)
[2018-06-07] MEDS: METHYLPREDNISOLONE INJ 125 MG/2 ML SDV IV SCH (10:21)
[2018-06-07] MEDS: NORMAL SALINE 1000 ML 1,000 ML IV PRN (10:26)
[2018-06-07] MEDS: CEFTRIAXONE SODIUM 1,000 MG in DEXTROSE 5%-WATER 50 ML IV SCH (11:18)
[2018-06-07] MEDS: HYDROCHLOROTHIAZIDE 25 MG TABLET PO SCH (18:30)
[2018-06-07] MEDS: NORMAL SALINE 1000 ML 1,000 ML with POTASSIUM CHLORIDE 20 MEQ, MAGNESIUM SULFATE 8 MEQ,... IV SCH ×5 (18:31)
[2018-06-08] MEDS: HEPARIN SOD (PORCINE) 5,000 UNIT/ML 1 ML SYRINGE SUBCUT SCH ×4 (00:02→23:13)
[2018-06-08] MEDS: LORAZEPAM INJ 2 MG/1 ML VIAL IV PRN ×5 (01:59→23:12)
[2018-06-08] MEDS: DIAZEPAM 5 MG TABLET PO SCH ×4 (05:00→23:12)
[2018-06-08] MEDS: NORMAL SALINE 1000 ML 1,000 ML IV PRN (05:06)
[2018-06-08 05:33] LABS: ABSOLUTE LYMPHOCYTES (AUTO) 0.5 10^3/uL (0.5-4.7); ABSOLUTE MONOCYTES (AUTO) 0.2 10^3/uL (0.1-1.4); ABSOLUTE NEUT (AUTO) 7.1 10^3/uL (1.7-8.2); HEMATOCRIT 38.2 % (37.9-51.0); HEMOGLOBIN 12.8 g/dL (13.5-17.0); MEAN CORPUSCULAR HEMOGLOBIN 30.2 pg (27.0-33.4); MEAN CORPUSCULAR HGB CONC 33.5 g/dL (32.0-36.0); MEAN CORPUSCULAR VOLUME 90 fl (80-97); MONOCYTES % (AUTO) 2.8 % (3-13); PLATELET COUNT 118 10^3/uL (150-450); RED BLOOD COUNT 4.24 10^6/uL (4.35-5.55); RED CELL DISTRIBUTION WIDTH 15.9 % (11.5-14.0); SEGMENTED NEUTROPHILS % (AUTO) 91.2 % (42-78); TOTAL CELLS COUNTED % (AUTO) 100 %; WHITE BLOOD COUNT 7.8 10^3/uL (4.0-10.5)
[2018-06-08 05:55] LABS: ALANINE AMINOTRANSFERASE 44 U/L (21-72); ALBUMIN 3.3 g/dL (3.5-5.0); ALKALINE PHOSPHATASE 85 U/L (38-126); ANION GAP 12 (5-19); ASPARTATE AMINO TRANSFERASE 85 U/L (17-59); BILIRUBIN,DIRECT 0.3 mg/dL (0.0-0.4); BILIRUBIN,TOTAL 0.9 mg/dL (0.2-1.3); BLOOD UREA NITROGEN 8 mg/dL (7-20); CALCIUM 9.3 mg/dL (8.4-10.2); CARBON DIOXIDE 29 mmol/L (22-30); CHLORIDE 99 mmol/L (98-107); GLUCOSE 131 mg/dL (75-110); POTASSIUM 3.8 mmol/L (3.6-5.0); SODIUM 139.8 mmol/L (137-145); TOTAL PROTEIN 6.5 g/dL (6.3-8.2)
[2018-06-08] MEDS ORDERED: METOPROLOL TARTRATE 25 MG TABLET PO ONE (06:15)
[2018-06-08] MEDS ORDERED: DIVALPROEX SODIUM 500 MG TAB.SR.24H PO ONE (07:00)
[2018-06-08] MEDS: IPRATROPIUM/ALBUTEROL 0.5-2.5 MG/3 ML AMPUL NEB PRN ×3 (08:04→19:36)
[2018-06-08] MEDS: HYDROCHLOROTHIAZIDE 25 MG TABLET PO SCH (08:18)
[2018-06-08] MEDS: METHYLPREDNISOLONE INJ 125 MG/2 ML SDV IV SCH ×3 (09:22→23:09)
[2018-06-08] MEDS: NICOTINE 21 MG/24 HR PATCH.TD24 TD SCH (09:22)
--- NOTE | 2018-06-08 10:20 | PDOC PROGRESS REPORT ---
Subjective Progress Note for:: 06/08/18 Subjective:: 06/06/2018 53-year-old male admitted with hypoxia pulse ox was in the 80s in the ER he was also found to be in acute renal failure. He has chronic history of smoking and alcohol use. No acute episodes last night patient is comfortably in the bed smiling eating his breakfast. 06/07/2018 53-year-old male admitted with alcohol withdrawals and acute renal failure. His creatinine was 0.65. Last night patient was agitated and he was started on diazepam 10 mg. P.o. every 8 hours in addition to the medications already getting 2 mg of Ativan IV every 4 as needed. This morning he was agitated and anxious and not communicating well but is alert and awake. #1 to start him on Haldol 5 mg p.o. every 8 hours as needed. Blood cultures are growing gram-positive cocci in 1 bottle. 06/08/2018. Patient was agitated and belligerent from last night. He was placed on restraints. He wants To come off. And he is using offensive language towards the staff. He is afebrile. Reason For Visit: ACUTE RENAL FAILURE, DEHYDRATION, ACUTE ALCOHOL Physical Exam Vital Signs: Temp Pulse Resp BP Pulse Ox 98.6 F 75 17 176/92 H 96 06/08/18 08:00 06/08/18 08:04 06/08/18 08:04 06/08/18 08:00 06/08/18 08:04 Intake & Output 06/07/18 06/08/18 06/09/18 06:59 06:59 06:59 Intake Total 1597 3081 1023 Output Total 3850 Balance 1597 -769 1023 Weight 76 kg 76.1 kg General appearance: PRESENT: no acute distress Head exam: PRESENT: atraumatic Eye exam: PRESENT: PERRLA Neck exam: ABSENT: carotid bruit, JVD, lymphadenopathy, thyromegaly Respiratory exam: PRESENT: wheezes Cardiovascular exam: PRESENT: tachycardia GI/Abdominal exam: PRESENT: normal bowel sounds, soft. ABSENT: distended, guarding, mass, organolmegaly, rebound, tenderness Neurological exam: PRESENT: alert, awake Psychiatric exam: PRESENT: agitated Results Laboratory Results: 06/08/18 04:30 06/08/18 04:30 06/07/18 06/08/1806/08/18 11:25 04:30 04:30 WBC 7.8 RBC 4.24 L Hgb 12.8 L Hct 38.2 MCV 90 MCH 30.2 MCHC 33.5 RDW 15.9 H Plt Count 118 L Seg Neutrophils % 91.2 H Lymphocytes % 6.0 L Monocytes % 2.8 L Eosinophils % 0.0 Basophils % 0.0 Absolute Neutrophils 7.1 Absolute Lymphocytes 0.5 Absolute Monocytes 0.2 Absolute Eosinophils 0.0 Absolute Basophils 0.0 Sodium 139.8 Potassium 3.8 Chloride 99 Carbon Dioxide 29 Anion Gap 12 BUN 8 Creatinine 0.62 Est GFR ( Amer) > 60 Est GFR (Non-Af Amer) > 60 Glucose 131 H Lactic Acid 0.9 Calcium 9.3 Magnesium 1.7 Total Bilirubin 0.9 AST 85 H ALT 44 Alkaline Phosphatase 85 Total Protein 6.5 Albumin 3.3 L Impressions: Chest X-Ray 06/05/18 19:13 IMPRESSION: Chronic lung changes with no acute cardiopulmonary findings. Head CT 06/05/18 21:00 IMPRESSION: Possible nasal bone fracture. Please correlate clinically. No skull fracture. No intracranial bleed. TECHNICAL DOCUMENTATION: Quality ID # [id number]: Final reports with documentation of one or more dose reduction techniques (e.g., Automated exposure control, adjustment of the mA and/or kV according to patient size, use of iterative reconstruction technique) copyright 2011 [employer]- All Rights Reserved Assessment & Plan - Diagnosis (1) Acute alcohol intoxication Qualifiers: Complication of substance-induced condition: uncomplicated Qualified Code(s ): F10.929 - Alcohol use, unspecified with intoxication, unspecified Is this a current diagnosis for this admission?: Yes Plan: 06/06/2018 patient has a long history of heavy alcohol use he was found to be unconscious before brought to the emergency room and his serum alcohol levels are 289 in the emergency room he was started on a banana bag today. He is also on IV Ativan as needed for alcohol withdrawal symptoms. So far no withdrawal symptoms. 06/07/2018 patient has chronic history of heavy alcohol use he was in IV Ativan 2 mg every 4 hours as needed, was started on diazepam 10 mg p.o. every 8 hours. Last night and this morning patient is still agitated and anxious I started him on Haldol 5 mg p.o. every 8 hours as needed. Will closely monitor the mental status. The alcohol level in the emergency room is 289. 06/08/2018 patient has history of heavy alcohol use. He is on Ativan 2 mg IV every 3 as needed, Haldol 5 mg p.o. every 8 hours, diazepam 10 mg p.o. every 8 hours. He still agitated and angry. Was placed in the restraints because of protective measure. Wants to be restrained self. to Change Haldol from 5 mg p.o. to 5 mg IV every 8 hours as needed. (2) Acute respiratory failure with hypoxia Is this a current diagnosis for this admission?: Yes Plan: 06/06/2018 patient was found to be unresponsive with O2 saturation of 80%. He is on nebulizations and as-needed basis on 2 L oxygen via nasal cannula pulse ox 's are much improved in the 90s today. He is a chronic smoker. He is also on IV Solu-Medrol. He is also on incentive spirometry. 06/07/2018 on examination today patient chest bilateral wheezing is present, decreased bilateral air entry, rales. He is on nebulizations every 4 as needed. He is on ipratropium/albuterol sulfate nebulizations. I am going to put him on IV Solu-Medrol 60 mg every 12 hours. 06/08/2018. Patient pulse ox is improving. But on examination continue to have a extensive wheezing all over the lung almodovar. IV Solu-Medrol 60 mg every 12 hours. He is also getting a nebulizer treatments. He is on Rocephin 1 g daily. Which is her negative so far. (3) COPD exacerbation Is this a current diagnosis for this admission?: Yes Plan: 06/06/2018 patient has chronic history of COPD secondary to chronic smoking. He he was found to be in acute respiratory failure in the ER. Presently he is on IV Solu-Medrol 120 mg. Getting nebulizer treatment every 3 to hours as needed and incentive spirometry. He was on prophylactic antibiotic azithromycin. 06/07/2018 patient has history of COPD secondary to smoking his pulse ox are low in the emergency room in acute on chronic respiratory failure in the ER he is getting nebulizations every 4 as needed and incentive spirometry. I started him on IV Rocephin 1 g daily today. 06/08/2018 patient has history of COPD secondary to smoking. Continued to have expiratory and inspiratory wheezing. And mild shortness of breath. Be going to continue IV Solu-Medrol IV antibiotics and incentive Spirometry along with nebulizations. (4) Acute renal failure Qualifiers: Acute renal failure type: unspecified Qualified Code(s): N17.9 - Acute kidney failure, unspecified Is this a current diagnosis for this admission?: Yes Plan: Patient was told found to be in acute renal failure in the ER. At the time of admission creatinine is 1.49. With IV fluids it is improved to 1.03. She is still hypotensive. Blood pressure is 90/60. 06/07/2018 on admission creatinine is 1.49. He was started on IV fluids. Blood pressure is elevated 168/99. At this point he is on normal saline at 150 cc/h. Creatinine is 0.65. Acute renal failure is resolved. I decreased IV fluids to 50 cc/h. 06/08/2018. Vision creatinine is 1.49 it was improved to 0.62 today. I am going to stop the IV fluids. (5) Lactic acidosis Is this a current diagnosis for this admission?: Yes Plan: 06/06/2018 initial lactic acid is 3.3 and lactic acid level is 5.2 on third is .3.9. 06/07/2018 latest lactic acid level is 3.7. I started him on IV Rocephin 1 g daily today. He is afebrile. The blood cultures 1 bottle shows gram-positive cocci. 06/08/2018 tested lactic acid level is 0.9. Blood cultures are negative. pt is getting IV Rocephin 1 g daily. (6) Tobacco dependence Is this a current diagnosis for this admission?: Yes (7) HTN (hypertension) Is this a current diagnosis for this admission?: Yes Plan: 06/08/2018 his blood pressure today is 176/92. Elevated for the last couple of days. He is on hydrochlorothiazide 25 mg p.o. daily, metoprolol 25 mg p.o. daily. to start on lisinopril 5 mg p.o. daily. - Time Time Spent with patient: 15-24 minutes Medications reviewed and adjusted accordingly: Yes Anticipated discharge: Home
[2018-06-08] MEDS: CEFTRIAXONE SODIUM 1,000 MG in DEXTROSE 5%-WATER 50 ML IV SCH (10:40)
[2018-06-08] MEDS: HALOPERIDOL LACTATE INJ 5 MG/1 ML VIAL IV PRN (10:40)
[2018-06-08] MEDS: NORMAL SALINE 1000 ML 1,000 ML with POTASSIUM CHLORIDE 20 MEQ, MAGNESIUM SULFATE 8 MEQ,... IV SCH ×5 (17:13)
[2018-06-09] MEDS: HALOPERIDOL LACTATE INJ 5 MG/1 ML VIAL IV PRN (01:03)
[2018-06-09 04:54] LABS: ABSOLUTE LYMPHOCYTES (AUTO) 0.6 10^3/uL (0.5-4.7); ABSOLUTE MONOCYTES (AUTO) 0.2 10^3/uL (0.1-1.4); ABSOLUTE NEUT (AUTO) 5.1 10^3/uL (1.7-8.2); BASOPHILS % (AUTO) 0.2 % (0-2); HEMATOCRIT 38.2 % (37.9-51.0); LYMPHOCYTES % (AUTO) 9.5 % (13-45); MEAN CORPUSCULAR HEMOGLOBIN 30.4 pg (27.0-33.4); MEAN CORPUSCULAR VOLUME 89 fl (80-97); RED BLOOD COUNT 4.28 10^6/uL (4.35-5.55); RED CELL DISTRIBUTION WIDTH 16.1 % (11.5-14.0); SEGMENTED NEUTROPHILS % (AUTO) 86.3 % (42-78); TOTAL CELLS COUNTED % (AUTO) 100 %; WHITE BLOOD COUNT 5.9 10^3/uL (4.0-10.5)
[2018-06-09 05:13] LABS: PLATELET COUNT 97 10^3/uL (150-450)
[2018-06-09 05:14] LABS: ALANINE AMINOTRANSFERASE 68 U/L (21-72); ALBUMIN 3.5 g/dL (3.5-5.0); ALKALINE PHOSPHATASE 71 U/L (38-126); ANION GAP 9 (5-19); ASPARTATE AMINO TRANSFERASE 127 U/L (17-59); BILIRUBIN,DIRECT 0.3 mg/dL (0.0-0.4); BILIRUBIN,TOTAL 0.9 mg/dL (0.2-1.3); BLOOD UREA NITROGEN 9 mg/dL (7-20); CALCIUM 9.1 mg/dL (8.4-10.2); CARBON DIOXIDE 32 mmol/L (22-30); CHLORIDE 99 mmol/L (98-107); GLUCOSE 125 mg/dL (75-110); POTASSIUM 3.9 mmol/L (3.6-5.0); SODIUM 139.8 mmol/L (137-145); TOTAL PROTEIN 6.6 g/dL (6.3-8.2)
[2018-06-09] MEDS: HEPARIN SOD (PORCINE) 5,000 UNIT/ML 1 ML SYRINGE SUBCUT SCH ×3 (06:41→21:38)
--- NOTE | 2018-06-09 09:06 | PDOC PROGRESS REPORT ---
Subjective Progress Note for:: 06/09/18 Subjective:: 06/06/2018 53-year-old male admitted with hypoxia pulse ox was in the 80s in the ER he was also found to be in acute renal failure. He has chronic history of smoking and alcohol use. No acute episodes last night patient is comfortably in the bed smiling eating his breakfast. 06/07/2018 53-year-old male admitted with alcohol withdrawals and acute renal failure. His creatinine was 0.65. Last night patient was agitated and he was started on diazepam 10 mg. P.o. every 8 hours in addition to the medications already getting 2 mg of Ativan IV every 4 as needed. This morning he was agitated and anxious and not communicating well but is alert and awake. #1 to start him on Haldol 5 mg p.o. every 8 hours as needed. Blood cultures are growing gram-positive cocci in 1 bottle. 06/08/2018. Patient was agitated and belligerent from last night. He was placed on restraints. He wants To come off. And he is using offensive language towards the staff. He is afebrile. 06/09/2018-patient is comfortably sleeping in bed he was placed on restraints yesterday. The report from the nurses indicates patient is more calm and more alert. She is afebrile in the last 24 hours. No acute events. Reason For Visit: ACUTE RENAL FAILURE, DEHYDRATION, ACUTE ALCOHOL Physical Exam Vital Signs: Temp Pulse Resp BP Pulse Ox 97.7 F 79 16 162/98 H 96 06/09/18 04:15 06/09/18 04:15 06/09/18 04:15 06/09/18 04:15 06/09/18 04:15 Intake & Output 06/08/18 06/09/18 06/10/18 06:59 06:59 06:59 Intake Total 3083 3012 Output Total 4721 5553 Balance -349 -4031 Weight 76.1 kg 71.7 kg General appearance: PRESENT: no acute distress Head exam: PRESENT: atraumatic Eye exam: PRESENT: PERRLA Mouth exam: PRESENT: moist Neck exam: ABSENT: carotid bruit, JVD, lymphadenopathy, thyromegaly Respiratory exam: PRESENT: rhonchi, wheezes Cardiovascular exam: PRESENT: tachycardia GI/Abdominal exam: PRESENT: normal bowel sounds, soft. ABSENT: distended, guarding, mass, organolmegaly, rebound, tenderness Neurological exam: PRESENT: other - Sleeping comfortably in the bed not agitated he is on restraints. Psychiatric exam: PRESENT: other - received halodol 2 hours ago he is comfortably asleep in the bed. Results Laboratory Results: 06/09/18 04:30 06/09/18 04:30 06/09/18 06/09/18 04:30 04:30 WBC 5.9 RBC 4.28 L Hgb 13.0 L Hct 38.2 MCV 89 MCH 30.4 MCHC 34.0 RDW 16.1 H Plt Count 97 L Seg Neutrophils % 86.3 H Lymphocytes % 9.5 L Monocytes % 4.0 Eosinophils % 0.0 Basophils % 0.2 Absolute Neutrophils 5.1 Absolute Lymphocytes 0.6 Absolute Monocytes 0.2 Absolute Eosinophils 0.0 Absolute Basophils 0.0 Sodium 139.8 Potassium 3.9 Chloride 99 Carbon Dioxide 32 H Anion Gap 9 BUN 9 Creatinine 0.64 Est GFR ( Amer) > 60 Est GFR (Non-Af Amer) > 60 Glucose 125 H Calcium 9.1 Magnesium 1.9 Total Bilirubin 0.9 AST 127 H ALT 68 Alkaline Phosphatase 71 Total Protein 6.6 Albumin 3.5 Impressions: Chest X-Ray 06/05/18 19:13 IMPRESSION: Chronic lung changes with no acute cardiopulmonary findings. Head CT 06/05/18 21:00 IMPRESSION: Possible nasal bone fracture. Please correlate clinically. No skull fracture. No intracranial bleed. TECHNICAL DOCUMENTATION: Quality ID # 436: Final reports with documentation of one or more dose reduction techniques (e.g., Automated exposure control, adjustment of the mA and/or kV according to patient size, use of iterative reconstruction technique) copyright 2010 [employer]- All Rights Reserved Assessment & Plan - Diagnosis (1) Acute alcohol intoxication Qualifiers: Complication of substance-induced condition: uncomplicated Qualified Code(s ): F10.929 - Alcohol use, unspecified with intoxication, unspecified Is this a current diagnosis for this admission?: Yes Plan: 06/06/2018 patient has a long history of heavy alcohol use he was found to be unconscious before brought to the emergency room and his serum alcohol levels are 289 in the emergency room he was started on a banana bag today. He is also on IV Ativan as needed for alcohol withdrawal symptoms. So far no withdrawal symptoms. 06/07/2018 patient has chronic history of heavy alcohol use he was in IV Ativan 2 mg every 4 hours as needed, was started on diazepam 10 mg p.o. every 8 hours. Last night and this morning patient is still agitated and anxious I started him on Haldol 5 mg p.o. every 8 hours as needed. Will closely monitor the mental status. The alcohol level in the emergency room is 289. 06/08/2018 patient has history of heavy alcohol use. He is on Ativan 2 mg IV every 3 as needed, Haldol 5 mg p.o. every 8 hours, diazepam 10 mg p.o. every 8 hours. He still agitated and angry. Was placed in the restraints because of protective measure. Wants to be restrained self. to Change Haldol from 5 mg p.o. to 5 mg IV every 8 hours as needed. 06/09/2018. Patient is still on restraints. Sleeping comfortably in the bed. As per the nursing report he had not slept at all last night. He is on Ativan 2 mg IV every 3 as needed, diazepam 10 mg p.o. every 8 hours, Haldol 5 mg IV every 8 hours as needed. We are going to continue the present management. (2) Acute respiratory failure with hypoxia Is this a current diagnosis for this admission?: Yes Plan: 06/06/2018 patient was found to be unresponsive with O2 saturation of 80%. He is on nebulizations and as-needed basis on 2 L oxygen via nasal cannula pulse ox 's are much improved in the 90s today. He is a chronic smoker. He is also on IV Solu-Medrol. He is also on incentive spirometry. 06/07/2018 on examination today patient chest bilateral wheezing is present, decreased bilateral air entry, rales. He is on nebulizations every 4 as needed. He is on ipratropium/albuterol sulfate nebulizations. I am going to put him on IV Solu-Medrol 60 mg every 12 hours. 06/08/2018. Patient pulse ox is improving. But on examination continue to have a extensive wheezing all over the lung almodovar. IV Solu-Medrol 60 mg every 12 hours. He is also getting a nebulizer treatments. He is on Rocephin 1 g daily. Which is her negative so far. 06/09/2018 examination chest bilateral wheezing is present , and getting DuoNeb nebulizations. He is also receiving IV Solu-Medrol 60 mg every 12 hours. The cultures came back Staphylococcus xylorus. Assist with the Levaquin. He is getting Levaquin 500 mg IV. Pulse ox on room air is 96%. (3) COPD exacerbation Is this a current diagnosis for this admission?: Yes Plan: 06/06/2018 patient has chronic history of COPD secondary to chronic smoking. He he was found to be in acute respiratory failure in the ER. Presently he is on IV Solu-Medrol 120 mg. Getting nebulizer treatment every 3 to hours as needed and incentive spirometry. He was on prophylactic antibiotic azithromycin. 06/07/2018 patient has history of COPD secondary to smoking his pulse ox are low in the emergency room in acute on chronic respiratory failure in the ER he is getting nebulizations every 4 as needed and incentive spirometry. I started him on IV Rocephin 1 g daily today. 06/08/2018 patient has history of COPD secondary to smoking. Continued to have expiratory and inspiratory wheezing. And mild shortness of breath. Be going to continue IV Solu-Medrol IV antibiotics and incentive Spirometry along with nebulizations. 06/09/2018 patient is on IV Solu-Medrol 60 mg every 12 hours, Levaquin 500 mg IV daily, nebulizer treatments every 4 as needed, incentive spirometry. Showing gradual improvement. We will continue the present management. (4) Acute renal failure Qualifiers: Acute renal failure type: unspecified Qualified Code(s): N17.9 - Acute kidney failure, unspecified Is this a current diagnosis for this admission?: Yes Plan: Patient was told found to be in acute renal failure in the ER. At the time of admission creatinine is 1.49. With IV fluids it is improved to 1.03. She is still hypotensive. Blood pressure is 90/60. 06/07/2018 on admission creatinine is 1.49. He was started on IV fluids. Blood pressure is elevated 168/99. At this point he is on normal saline at 150 cc/h. Creatinine is 0.65. Acute renal failure is resolved. I decreased IV fluids to 50 cc/h. 06/08/2018. Vision creatinine is 1.49 it was improved to 0.62 today. I am going to stop the IV fluids. 06/09/2018 patient admitted with acute renal failure with creatinine of 1.49. Today's creatinine is 0.64. Darshan resolved. (5) Lactic acidosis Is this a current diagnosis for this admission?: Yes Plan: 06/06/2018 initial lactic acid is 3.3 and lactic acid level is 5.2 on third is .3.9. 06/07/2018 latest lactic acid level is 3.7. I started him on IV Rocephin 1 g daily today. He is afebrile. The blood cultures 1 bottle shows gram-positive cocci. 06/08/2018 latest lactic acid level is 0.9. Blood cultures are negative. pt is getting IV Rocephin 1 g daily. (6) Tobacco dependence Is this a current diagnosis for this admission?: Yes (7) HTN (hypertension) Qualifiers: Hypertension type: essential hypertension Qualified Code(s): I10 - Essential (primary) hypertension Is this a current diagnosis for this admission?: Yes Plan: 06/08/2018 his blood pressure today is 176/92. Elevated for the last couple of days. He is on hydrochlorothiazide 25 mg p.o. daily, metoprolol 25 mg p.o. daily. to start on lisinopril 5 mg p.o. daily. 06/09/2018 blood pressure today is 162/98 recently he is on hydrochlorothiazide 25 mg p.o. daily, metoprolol 25 mg p.o. daily he was started on lisinopril 5 mg p.o. daily I am going to increase it to 20 mg p.o. daily. - Time Time Spent with patient: 15-24 minutes Medications reviewed and adjusted accordingly: Yes Anticipated discharge: Home
[2018-06-09] MEDS: DIAZEPAM 5 MG TABLET PO SCH ×3 (09:25→21:40)
[2018-06-09] MEDS: HYDROCHLOROTHIAZIDE 25 MG TABLET PO SCH (09:29)
[2018-06-09] MEDS: NICOTINE 21 MG/24 HR PATCH.TD24 TD SCH (09:29)
[2018-06-09] MEDS: METHYLPREDNISOLONE INJ 125 MG/2 ML SDV IV SCH ×2 (09:30→21:39)
[2018-06-09] MEDS ORDERED: LISINOPRIL 5 MG TABLET PO SCH (10:00)
[2018-06-09] MEDS: LISINOPRIL 10 MG TABLET PO SCH (10:16)
[2018-06-09] MEDS: CEFTRIAXONE SODIUM 1,000 MG in DEXTROSE 5%-WATER 50 ML IV SCH (10:17)
[2018-06-09] MEDS: NORMAL SALINE 1000 ML 1,000 ML with POTASSIUM CHLORIDE 20 MEQ, MAGNESIUM SULFATE 8 MEQ,... IV SCH ×5 (17:29)
[2018-06-09] MEDS: IPRATROPIUM/ALBUTEROL 0.5-2.5 MG/3 ML AMPUL NEB PRN (19:35)
[2018-06-10] MEDS: DIAZEPAM 5 MG TABLET PO SCH ×3 (05:14→21:42)
[2018-06-10] MEDS: HEPARIN SOD (PORCINE) 5,000 UNIT/ML 1 ML SYRINGE SUBCUT SCH ×3 (05:15→21:47)
[2018-06-10] MEDS: NICOTINE 21 MG/24 HR PATCH.TD24 TD SCH (10:47)
[2018-06-10] MEDS: HYDROCHLOROTHIAZIDE 25 MG TABLET PO SCH (10:48)
[2018-06-10] MEDS: LISINOPRIL 10 MG TABLET PO SCH (10:48)
[2018-06-10] MEDS: METHYLPREDNISOLONE INJ 125 MG/2 ML SDV IV SCH (10:48)
[2018-06-10] MEDS: CEFTRIAXONE SODIUM 1,000 MG in DEXTROSE 5%-WATER 50 ML IV SCH (10:51)
[2018-06-10] MEDS: IPRATROPIUM/ALBUTEROL 0.5-2.5 MG/3 ML AMPUL NEB PRN (13:17)
--- NOTE | 2018-06-10 15:42 | PDOC PROGRESS REPORT ---
Subjective Progress Note for:: 06/10/18 Subjective:: The patient is a 53-year-old male with a past medical history of hypertension, COPD, alcohol dependence, substance abuse, and tobacco dependency who was admitted with acute respiratory failure and hypoxia secondary to a COPD exacerbation with acute alcohol intoxication. The patient was seen on morning rounds. He was found resting in bed comfortably on room air. Initially he was sleeping but woke easily when I set his name. He is alert and oriented x3, but otherwise is difficult to understand and does not follow commands. He briefly becomes agitated and demands that I can get his nurse to help him change his sheets; at that time I find that his sheets are wet due to urinary incontinence. He does deny headache, chest pain, dyspnea, abdominal pain, nausea and vomiting. He has no other questions or concerns. No concerns per nursing. Reason For Visit: ACUTE RENAL FAILURE, DEHYDRATION, ACUTE ALCOHOL Physical Exam Vital Signs: Temp Pulse Resp BP Pulse Ox 98.3 F 77 16 151/91 H 97 06/10/18 12:09 06/10/18 13:17 06/10/18 13:17 06/10/18 12:09 06/10/18 13:20 Intake & Output 06/09/18 06/10/18 06/11/18 06:59 06:59 06:59 Intake Total 1842 1466 1023 Output Total 3775 1100 Balance -1600 398 9367 Weight 71.7 kg 70.1 kg General appearance: PRESENT: no acute distress, disheveled, well-developed, well -nourished Head exam: PRESENT: atraumatic, normocephalic Eye exam: PRESENT: conjunctiva pink, EOMI, PERRLA. ABSENT: scleral icterus Ear exam: PRESENT: normal external ear exam Mouth exam: PRESENT: moist, tongue midline Neck exam: ABSENT: carotid bruit, JVD, lymphadenopathy, thyromegaly Respiratory exam: PRESENT: rhonchi, wheezes. ABSENT: rales Cardiovascular exam: PRESENT: RRR, +S1, +S2. ABSENT: diastolic murmur, rubs, systolic murmur Pulses: PRESENT: normal dorsalis pedis pul Vascular exam: PRESENT: normal capillary refill GI/Abdominal exam: PRESENT: normal bowel sounds, soft. ABSENT: distended, guarding, mass, organolmegaly, rebound, tenderness Rectal exam: PRESENT: deferred Extremities exam: PRESENT: full ROM. ABSENT: calf tenderness, clubbing, pedal edema Neurological exam: PRESENT: alert, awake, oriented to person, oriented to place , oriented to time, CN II-XII grossly intact. ABSENT: motor sensory deficit Psychiatric exam: PRESENT: agitated, appropriate affect. ABSENT: homicidal ideation, suicidal ideation Skin exam: PRESENT: dry, intact, warm. ABSENT: cyanosis, rash Results Laboratory Results: 06/09/18 04:30 06/09/18 04:30 Impressions: Chest X-Ray 06/05/18 19:13 IMPRESSION: Chronic lung changes with no acute cardiopulmonary findings. Head CT 06/05/18 21:00 IMPRESSION: Possible nasal bone fracture. Please correlate clinically. No skull fracture. No intracranial bleed. TECHNICAL DOCUMENTATION: Quality ID # 436: Final reports with documentation of one or more dose reduction techniques (e.g., Automated exposure control, adjustment of the mA and/or kV according to patient size, use of iterative reconstruction technique) copyright 2011 [employer]- All Rights Reserved Assessment & Plan - Diagnosis (1) Alcohol withdrawal Qualifiers: Complication of substance-induced condition: with delirium Qualified Code(s ): F10.231 - Alcohol dependence with withdrawal delirium Is this a current diagnosis for this admission?: Yes Plan: The patient was admitted acutely intoxicated with serum alcohol level of 289 in the emergency department. Per the previous providers notes; the patient became agitated, delirious, and requiring soft limb restraints. He has been out of his restraints for approximately 24 hours at this time. On exam today, he is arousable, oriented x3, but easily agitated and incontinent of urine. We will continue scheduled p.o. Valium. Ativan 2 mg IV every 3 hours as needed for anxiety, agitation, withdrawal symptoms. Haldol 5 mg IV every 8 hours as needed anxiety, agitation. Antiemetics as needed. 1:1 Sitter for safety. Fall seizure and aspiration precautions. (2) Acute respiratory failure with hypoxia Is this a current diagnosis for this admission?: Yes Plan: Resolved; likely secondary to COPD exacerbation and acute alcohol intoxication. The patient was found to be unresponsive with an oxygen saturation of 80%. Serum alcohol elevated to 289, UDS revealed TSH but was otherwise negative. Chest x-ray demonstrated chronic interstitial changes consistent with COPD. COPD exacerbation management as outlined below. (3) COPD exacerbation Is this a current diagnosis for this admission?: Yes Plan: Advair twice daily. As needed nebulizer treatments. Supplemental oxygen as needed to maintain saturations greater than 89%. IV Solu-Medrol; have begun weaning. Incentive spirometer and flutter valve to bedside. (4) HTN (hypertension) Qualifiers: Hypertension type: essential hypertension Qualified Code(s): I10 - Essential (primary) hypertension Is this a current diagnosis for this admission?: Yes Plan: Patient's blood pressures remain slightly elevated; likely secondary to alcohol withdrawal. Continue his home dose HCTZ. Continue lisinopril 20 mg daily. Continue IV Lopressor every 6 hours as needed for blood pressure control. Cardiac diet. (5) Alcohol dependence Is this a current diagnosis for this admission?: Yes Plan: The patient endorses a long history of heavy alcohol intake. He was admitted with a serum alcohol level of 289. He is provided nightly IV banana bag. Benzodiazepine weaning as above. Discharge planning is consulted. (6) Tobacco dependence Is this a current diagnosis for this admission?: Yes Plan: The patient endorses smoking 1 pack/day. Continue nicotine replacement therapies. (7) Acute alcohol intoxication Qualifiers: Complication of substance-induced condition: with delirium Qualified Code(s ): F10.921 - Alcohol use, unspecified with intoxication delirium Is this a current diagnosis for this admission?: Yes Plan: Plan as above. (8) Acute renal failure Qualifiers: Acute renal failure type: unspecified Qualified Code(s): N17.9 - Acute kidney failure, unspecified Is this a current diagnosis for this admission?: Yes Plan: Resolved; patient was admitted with a creatinine of 1.49. He has returned to his baseline of 0.64. (9) Lactic acidosis Is this a current diagnosis for this admission?: Yes Plan: Resolved. Initial lactic acid was elevated to 3.3 on admission, peaked at 5.2 and now resolved. No evidence of acute infection and the patient is hemodynamically stable. This is likely secondary to dehydration in the setting of acute alcohol intoxication. (10) Bacteremia Is this a current diagnosis for this admission?: Yes Plan: Ruled out; determined to be a contaminant. Blood cultures grew Staph xylosus in 1 bottle or 4; coag negative staph without signs of acute infection is determined to be a contaminant. The patient has remained afebrile throughout his admission. WBCs have remained normal. The patient did receive IV azithromycin x1 for COPD exacerbation. He was then placed on IV Rocephin secondary to growth of gram-positive cocci in 1 bottle; received 3 doses. Antibiotics are no longer indicated.
[2018-06-10] MEDS: NORMAL SALINE 1000 ML 1,000 ML with POTASSIUM CHLORIDE 20 MEQ, MAGNESIUM SULFATE 8 MEQ,... IV SCH ×5 (20:14)
[2018-06-10] MEDS: FLUTICASONE/SALMETEROL DISKUS 250-50 MCG/DOSE IH SCH (21:42)
[2018-06-10] MEDS: METHYLPREDNISOLONE INJ 40 MG/1 ML SDV IV SCH (21:43)
[2018-06-11] MEDS: METHYLPREDNISOLONE INJ 40 MG/1 ML SDV IV SCH ×3 (05:45→21:39)
[2018-06-11] MEDS: DIAZEPAM 5 MG TABLET PO SCH (05:47)
[2018-06-11] MEDS: HEPARIN SOD (PORCINE) 5,000 UNIT/ML 1 ML SYRINGE SUBCUT SCH ×3 (05:48→21:40)
[2018-06-11] MEDS ORDERED: DIAZEPAM 2 MG TABLET PO PRN (08:24)
[2018-06-11] MEDS: HYDROCHLOROTHIAZIDE 25 MG TABLET PO SCH (08:42)
[2018-06-11] MEDS: LISINOPRIL 10 MG TABLET PO SCH (11:00)
[2018-06-11] MEDS: FOLIC ACID 1 MG TABLET PO SCH (11:01)
[2018-06-11] MEDS: NICOTINE 21 MG/24 HR PATCH.TD24 TD SCH (11:01)
[2018-06-11] MEDS: THIAMINE HCL 100 MG TABLET PO SCH (11:01)
[2018-06-11] MEDS: FLUTICASONE/SALMETEROL DISKUS 250-50 MCG/DOSE IH SCH ×2 (11:02→21:38)
--- NOTE | 2018-06-11 14:15 | PDOC PROGRESS REPORT ---
Subjective Progress Note for:: 06/11/18 Subjective:: The patient is a 53-year-old male with a past medical history of hypertension, COPD, alcohol dependence, substance abuse, and tobacco dependency who was admitted with acute respiratory failure and hypoxia secondary to a COPD exacerbation with acute alcohol intoxication. The patient was seen on morning rounds. He was found resting in bed comfortably on supplemental oxygen via NC at 1 lpm. He was observed earlier in the day to ambulate in the hallways with physical therapy utilizing a front wheel walker while on room air. He reports that he is feeling well today, but does report intermittent shortness of breath and wheezing. He denies fever, chills, headache, dizziness, chest pain, palpitations, dyspnea at rest, abdominal pain, nausea and vomiting. He has no other questions or concerns. No concerns per nursing. Reason For Visit: ACUTE RENAL FAILURE, DEHYDRATION, ACUTE ALCOHOL Physical Exam Vital Signs: Temp Pulse Resp BP Pulse Ox 98.3 F 91 16 141/87 H 94 06/11/18 10:00 06/11/18 10:00 06/11/18 10:00 06/11/18 10:00 06/11/18 10:00 Intake & Output 06/10/18 06/11/18 06/12/18 06:59 06:59 06:59 Intake Total 1466 1073 Output Total 1100 Balance 366 1073 Weight 70.1 kg 70.9 kg General appearance: PRESENT: no acute distress, cooperative, well-developed, well-nourished Head exam: PRESENT: atraumatic, normocephalic Eye exam: PRESENT: conjunctiva pink, EOMI, PERRLA. ABSENT: scleral icterus Ear exam: PRESENT: normal external ear exam Mouth exam: PRESENT: moist, tongue midline Neck exam: ABSENT: carotid bruit, JVD, lymphadenopathy, thyromegaly Respiratory exam: PRESENT: prolonged expiratory phas, rhonchi, symmetrical, unlabored, wheezes. ABSENT: rales Cardiovascular exam: PRESENT: RRR, +S1, +S2. ABSENT: diastolic murmur, rubs, systolic murmur Pulses: PRESENT: normal dorsalis pedis pul Vascular exam: PRESENT: normal capillary refill GI/Abdominal exam: PRESENT: distended, normal bowel sounds, soft. ABSENT: guarding, mass, organolmegaly, rebound, tenderness Rectal exam: PRESENT: deferred Extremities exam: PRESENT: full ROM. ABSENT: calf tenderness, clubbing, pedal edema Musculoskeletal exam: PRESENT: ambulatory - With assistance in front wheel walker Neurological exam: PRESENT: alert, awake, oriented to person, oriented to place , abnormal gait, CN II-XII grossly intact. ABSENT: oriented to time, oriented to situation, motor sensory deficit Psychiatric exam: PRESENT: appropriate affect, normal mood. ABSENT: homicidal ideation, suicidal ideation Skin exam: PRESENT: dry, intact, warm. ABSENT: cyanosis, rash Results Laboratory Results: 06/09/18 04:30 06/09/18 04:30 Impressions: Chest X-Ray 06/05/18 19:13 IMPRESSION: Chronic lung changes with no acute cardiopulmonary findings. Head CT 06/05/18 21:00 IMPRESSION: Possible nasal bone fracture. Please correlate clinically. No skull fracture. No intracranial bleed. TECHNICAL DOCUMENTATION: Quality ID # 436: Final reports with documentation of one or more dose reduction techniques (e.g., Automated exposure control, adjustment of the mA and/or kV according to patient size, use of iterative reconstruction technique) copyright 2011 [employer]- All Rights Reserved Assessment & Plan - Diagnosis (1) Alcohol withdrawal Qualifiers: Complication of substance-induced condition: with delirium Qualified Code(s ): F10.231 - Alcohol dependence with withdrawal delirium Is this a current diagnosis for this admission?: Yes Plan: Resolved; the patient has been weaned from scheduled benzodiazepines. He is no longer hypertensive, tachycardic, or agitated. He does remain oriented to self and place only, however, is conversationally appropriate. Serum alcohol level of 289 in the emergency department. Per the previous providers notes; the patient became agitated, delirious, and requiring soft limb restraints. He has been out of his restraints for >48 hours. Scheduled Valium is discontinued today. IV Ativan is discontinued. We will continue to provide Valium 2 mg p.o. every 6 hours as needed. Haldol 5 mg IV every 8 hours as needed anxiety, agitation. Antiemetics as needed. He no longer requires a sitter. Fall seizure and aspiration precautions. (2) Acute respiratory failure with hypoxia Is this a current diagnosis for this admission?: Yes Plan: Resolved; likely secondary to COPD exacerbation and acute alcohol intoxication. The patient was found to be unresponsive with an oxygen saturation of 80%. Serum alcohol elevated to 289, UDS revealed TSH but was otherwise negative. Chest x-ray demonstrated chronic interstitial changes consistent with COPD. COPD exacerbation management as outlined below. (3) COPD exacerbation Is this a current diagnosis for this admission?: Yes Plan: Advair twice daily. As needed nebulizer treatments. Supplemental oxygen as needed to maintain saturations greater than 89%. We will plan to transition to p.o. prednisone tomorrow. Incentive spirometer and flutter valve to bedside. (4) HTN (hypertension) Qualifiers: Hypertension type: essential hypertension Qualified Code(s): I10 - Essential (primary) hypertension Is this a current diagnosis for this admission?: Yes Plan: Patient's blood pressures remain slightly elevated; likely secondary to alcohol withdrawal. Continue his home dose HCTZ. Continue lisinopril 20 mg daily. Continue IV Lopressor every 6 hours as needed for blood pressure control. Cardiac diet. (5) Alcohol dependence Is this a current diagnosis for this admission?: Yes Plan: The patient endorses a long history of heavy alcohol intake. He was admitted with a serum alcohol level of 289. Oral multivitamin with iron, thiamine, and folic acid supplementation. Benzodiazepine weaning as above. Discharge planning is consulted. (6) Tobacco dependence Is this a current diagnosis for this admission?: Yes Plan: The patient endorses smoking 1 pack/day. Continue nicotine replacement therapies. (7) Acute alcohol intoxication Qualifiers: Complication of substance-induced condition: with delirium Qualified Code(s ): F10.921 - Alcohol use, unspecified with intoxication delirium Is this a current diagnosis for this admission?: Yes Plan: Plan as above. (8) Acute renal failure Qualifiers: Acute renal failure type: unspecified Qualified Code(s): N17.9 - Acute kidney failure, unspecified Is this a current diagnosis for this admission?: Yes Plan: Resolved; patient was admitted with a creatinine of 1.49. He has returned to his baseline of 0.64. (9) Lactic acidosis Is this a current diagnosis for this admission?: Yes Plan: Resolved. Initial lactic acid was elevated to 3.3 on admission, peaked at 5.2 and now resolved. No evidence of acute infection and the patient is hemodynamically stable. This is likely secondary to dehydration in the setting of acute alcohol intoxication. (10) Bacteremia Is this a current diagnosis for this admission?: Yes Plan: Ruled out; determined to be a contaminant. Blood cultures grew Staph xylosus in 1 bottle or 4; coag negative staph without signs of acute infection is determined to be a contaminant. The patient has remained afebrile throughout his admission. WBCs have remained normal. The patient did receive IV azithromycin x1 for COPD exacerbation. He was then placed on IV Rocephin secondary to growth of gram-positive cocci in 1 bottle; received 3 doses. Antibiotics are no longer indicated. - Time Time Spent with patient: 15-24 minutes Anticipated discharge: SNF - Short-term rehab Within: when bed available
[2018-06-11] MEDS: IPRATROPIUM/ALBUTEROL 0.5-2.5 MG/3 ML AMPUL NEB PRN (14:22)
[2018-06-12] MEDS: METHYLPREDNISOLONE INJ 40 MG/1 ML SDV IV SCH (05:21)
[2018-06-12] MEDS: HEPARIN SOD (PORCINE) 5,000 UNIT/ML 1 ML SYRINGE SUBCUT SCH ×2 (05:23→15:13)
[2018-06-12] MEDS ORDERED: MULTIVITAMINS W-IRON TABLET, CHEWABLE PO SCH (10:00)
[2018-06-12] MEDS ORDERED: PREDNISONE 20 MG TABLET PO SCH (10:00)
[2018-06-12] MEDS: FLUTICASONE/SALMETEROL DISKUS 250-50 MCG/DOSE IH SCH (10:22)
[2018-06-12] MEDS: THIAMINE HCL 100 MG TABLET PO SCH (10:25)
[2018-06-12] MEDS: LISINOPRIL 10 MG TABLET PO SCH (10:25)
[2018-06-12] MEDS: FOLIC ACID 1 MG TABLET PO SCH (10:26)
[2018-06-12] MEDS: NICOTINE 21 MG/24 HR PATCH.TD24 TD SCH (10:30)
[2018-06-12] MEDS: IPRATROPIUM/ALBUTEROL 0.5-2.5 MG/3 ML AMPUL NEB PRN ×2 (12:14→15:45)
--- NOTE | 2018-06-12 14:57 | PDOC DISCHARGE SUMMARY ---
General - Admit/Disc Date/PCP Admission Date/Primary Care Provider: 06/06/18 11:43 [facility] Discharge Date: 06/12/18 - Discharge Diagnosis (1) Alcohol withdrawal Is this a current diagnosis for this admission?: Yes Summary: Resolved; the patient has been weaned from scheduled benzodiazepines. He is no longer hypertensive, tachycardic, or agitated. He does remain oriented to self and place only, however, is conversationally appropriate. Serum alcohol level of 289 in the emergency department. Per the previous providers notes; the patient became agitated, delirious, and requiring soft limb restraints. He has been out of his restraints for >72 hours. Last benzodiazepine dose >24 hours ago. (2) Acute respiratory failure with hypoxia Is this a current diagnosis for this admission?: Yes Summary: Improved; patient continues to require supplemental oxygen at 1-2 L/min by nasal cannula. He is not home O2 dependent. Secondary to COPD exacerbation and acute alcohol intoxication. The patient was found to be unresponsive with an oxygen saturation of 80%. Serum alcohol elevated to 289, UDS revealed TSH but was otherwise negative. Chest x-ray demonstrated chronic interstitial changes consistent with COPD. (3) COPD exacerbation Is this a current diagnosis for this admission?: Yes Summary: Patient has been placed on Advair twice daily. He was provided scheduled and as needed nebulizer treatments; this is been weaned to as needed nebulizer treatments only. His supplemental oxygen needs have decreased to 1-2 L/min to maintain oxygen saturations greater than 89%. He is no longer tachypneic, tachycardic, or reporting dyspnea. He was initially on IV Solu-Medrol; was transitioned to p.o. prednisone today and provided a prescription for prednisone taper at discharge. Recommend continued incentive spirometer and flutter valve use hourly while awake. (4) HTN (hypertension) Is this a current diagnosis for this admission?: Yes Summary: Improved blood pressure; patient is discharged on hydrochlorothiazide 25 mg daily and lisinopril 20 mg daily. (5) Alcohol dependence Is this a current diagnosis for this admission?: Yes Summary: The patient endorses a long history of heavy alcohol intake. He was admitted with a serum alcohol level of 289. Recommend continued oral multivitamin with iron, thiamine, and folic acid supplementation (6) Tobacco dependence Is this a current diagnosis for this admission?: Yes Summary: The patient endorses smoking 1 pack/day. Smoking cessation is encouraged, nicotine replacement therapies are provided. Patient is provided a prescription for NicoDerm patches on discharge. (7) Acute alcohol intoxication Is this a current diagnosis for this admission?: Yes Summary: Resolved. (8) Acute renal failure Is this a current diagnosis for this admission?: Yes Summary: Resolved; patient was admitted with a creatinine of 1.49. He has returned to his baseline of 0.64. (9) Lactic acidosis Is this a current diagnosis for this admission?: Yes Summary: Resolved. Initial lactic acid was elevated to 3.3 on admission, peaked at 5.2 and now resolved. No evidence of acute infection and the patient is hemodynamically stable. This is likely secondary to dehydration in the setting of acute alcohol intoxication. (10) Bacteremia Is this a current diagnosis for this admission?: Yes Summary: Ruled out; determined to be a contaminant. Blood cultures grew Staph xylosus in 1 bottle or 4; coag negative staph without signs of acute infection is determined to be a contaminant. The patient has remained afebrile throughout his admission. WBCs have remained normal. The patient did receive IV azithromycin x1 for COPD exacerbation. He was then placed on IV Rocephin secondary to growth of gram-positive cocci in 1 bottle; received 3 doses. - Additional Information Resuscitation Status: Full Code Discharge Diet: Regular Discharge Activity: Activity As Tolerated, Balance Activity w/Rest, Slowly Increase Activity Prescriptions: Diazepam [Valium 2 mg Tablet] 2 mg PO Q6HP PRN #12 tablet PRN Reason: Folic Acid [Folvite 1 mg Tablet] 1 mg PO DAILY #30 tablet Hydrochlorothiazide [Hydrodiuril 25 mg Tablet] 25 mg PO QAM #30 tablet Lisinopril [Prinivil 10 mg Tablet] 20 mg PO DAILY #60 tablet Multivitamins W-Iron [Flintstones Chewable Multivit W/Fe Tab] 2 tab PO DAILY # 60 tab.chew Nicotine [Nicoderm 21 mg/24 Hr Transderm Patch] 1 each TD DAILY #30 patch.td24 Prednisone [Deltasone 20 mg Tablet] 60 mg PO DAILY #12 tablet Thiamine HCl [Thiamine 100 mg Tablet] 100 mg PO DAILY #30 tablet Home Medications: Hydrochlorothiazide [Hydrodiuril 25 mg Tablet] 25 mg PO QAM 06/07/18 Mometasone/Formoterol [Dulera 100 Mcg/5 Mcg Inhaler] 1 inh PO Q3 PRN 06/07/18 Acetaminophen [Tylenol 325 mg Tablet] 650 mg PO Q4HP PRN tablet 06/12/18 Diazepam [Valium 2 mg Tablet] 2 mg PO Q6HP PRN #12 tablet 06/12/18 Folic Acid [Folvite 1 mg Tablet] 1 mg PO DAILY #30 tablet 06/12/18 Hydrochlorothiazide [Hydrodiuril 25 mg Tablet] 25 mg PO QAM #30 tablet 06/12/18 Lisinopril [Prinivil 10 mg Tablet] 20 mg PO DAILY #60 tablet 06/12/18 Mag Hydrox/Al Hydrox/Simeth [Maalox Plus Susp 30 Udcup] 30 ml PO Q6HP PRN udc 06/12/18 Multivitamins W-Iron [Flintstones Chewable Multivit W/Fe Tab] 2 tab PO DAILY # 60 tab.chew 06/12/18 Nicotine [Nicoderm 21 mg/24 Hr Transderm Patch] 1 each TD DAILY #30 patch.td24 06/12/18 Prednisone [Deltasone 20 mg Tablet] 60 mg PO DAILY #12 tablet 06/12/18 Thiamine HCl [Thiamine 100 mg Tablet] 100 mg PO DAILY #30 tablet 06/12/18 History of Present Illness History of Present Illness: Per H&P by Dr. Perez: JOEY TORRES II is a 53 year old male with medical history remarkable for alcohol dependence/abuse comes to the emergency department after his sister went to check on him and found him unconscious and unresponsive laying on the couch, face up with his eyes open. His sister and niece are at the bedside and tells me that the last time they saw him was last Saturday and apparently was the last day he had a meal, he has been drinking beers and [place] at home, he does not remember when was his last drink but his serum alcohol levels were 289 in the ED. He was found with an oxygen saturation of 80% on room air with a blood pressure of 90/62, he was gagging, he remembers when he was on the stretcher at home, on his way to the hospital 500 cc of IV fluids were given. Upon arrival to our facility a total of 3 L of normal saline given and he was alert and oriented x4 by the time I went to examine him. Laboratory came back with acute renal failure with a creatinine of 1.49 with a lactic acid of 3.3, blood pressure has improved. Patient also was found with bilateral wheezing with diffuse rhonchi, patient smokes 1 pack/day and has been diagnosed with COPD. 125 of IV methylprednisolone given. Currently stable on 2 L oxygen via nasal cannula. Physical Exam Vital Signs: Temp Pulse Resp BP Pulse Ox 97.4 F 84 16 146/86 H 91 L 06/12/18 08:22 06/12/18 12:14 06/12/18 12:14 06/12/18 08:22 06/12/18 12:14 Intake & Output 06/11/18 06/12/18 06/13/18 06:59 06:59 06:59 Intake Total 1073 1309 Output Total 1890 Balance 1073 -581 Weight 70.9 kg 70.9 kg General appearance: PRESENT: no acute distress, cooperative, disheveled, well- developed, well-nourished Head exam: PRESENT: atraumatic, normocephalic Eye exam: PRESENT: conjunctiva pink, EOMI, PERRLA. ABSENT: scleral icterus Ear exam: PRESENT: normal external ear exam Mouth exam: PRESENT: moist, tongue midline Neck exam: ABSENT: carotid bruit, JVD, lymphadenopathy, thyromegaly Respiratory exam: PRESENT: prolonged expiratory phas, rhonchi, symmetrical, unlabored, other - Supplemental oxygen by nasal cannula. ABSENT: rales, wheezes Cardiovascular exam: PRESENT: RRR, +S1, +S2. ABSENT: diastolic murmur, rubs, systolic murmur Pulses: PRESENT: normal dorsalis pedis pul Vascular exam: PRESENT: normal capillary refill GI/Abdominal exam: PRESENT: normal bowel sounds, soft. ABSENT: distended, guarding, mass, organolmegaly, rebound, tenderness Rectal exam: PRESENT: deferred Extremities exam: PRESENT: full ROM. ABSENT: calf tenderness, clubbing, pedal edema Musculoskeletal exam: PRESENT: ambulatory - With internal medicine physician assistant front wheel walker; unsteady gait Neurological exam: PRESENT: alert, awake, oriented to person, oriented to place , CN II-XII grossly intact, other - Gradual improvement in the patient's mentation and situational awareness; today he is alert and oriented to person and place; conversationally appropriate and agreeable to rehab.. ABSENT: oriented to time, oriented to situation, motor sensory deficit Psychiatric exam: PRESENT: appropriate affect, normal mood. ABSENT: homicidal ideation, suicidal ideation Skin exam: PRESENT: dry, intact, warm. ABSENT: cyanosis, rash Results Laboratory Results: 06/09/18 04:30 06/09/18 04:30 Impressions: Chest X-Ray 06/05/18 19:13 IMPRESSION: Chronic lung changes with no acute cardiopulmonary findings. Head CT 06/05/18 21:00 IMPRESSION: Possible nasal bone fracture. Please correlate clinically. No skull fracture. No intracranial bleed. TECHNICAL DOCUMENTATION: Quality ID # 436: Final reports with documentation of one or more dose reduction techniques (e.g., Automated exposure control, adjustment of the mA and/or kV according to patient size, use of iterative reconstruction technique) copyright 2011 [employer]- All Rights Reserved Qualifiers - * PATIENT BEING DISCHARGED WITH ANY OF THE FOLLOWING DIAGNOSIS: No Plan Discharge Plan: [facility]charge to [facility] for [facility]. Time Spent: Less than 30 Minutes
[2018-06-12] MEDS: HYDROCHLOROTHIAZIDE 25 MG TABLET PO SCH (15:15)
[2018-06-12 16:27] VITALS: BP 121/75
== END 2018-06-12 16:52 | DRG 896 ==
LOC: ER 18:21 → INTOOBSV 22:22 → EH 22:22 → 3N 06-06 00:11 → OBSVTOIN 06-06 11:43 → 4N 06-09 22:07
PROVIDERS: ADMIT Internal Medicine; ATTEND Internal Medicine
PROC: 3E0234Z Introduction of Serum, Toxoid and Vaccine into Muscle, Percutaneous Approach (ICD-10-PCS; 2018-06-05)
PROC: 3E0F73Z Introduction of Anti-inflammatory into Respiratory Tract, Via Natural or Artificial Opening (ICD-10-PCS; principal; 2018-06-06)
DX: F10.229 Alcohol dependence with intoxication, unspecified (principal); J96.01 Acute respiratory failure with hypoxia; N17.9 Acute kidney failure, unspecified; J44.1 Chronic obstructive pulmonary disease with (acute) exacerbation; E87.2 Acidosis; F10.231 Alcohol dependence with withdrawal delirium; E86.0 Dehydration; Y90.8 Blood alcohol level of 240 mg/100 ml or more; I10 Essential (primary) hypertension; F17.210 Nicotine dependence, cigarettes, uncomplicated; S02.2XXA Fracture of nasal bones, initial encounter for closed fracture; W01.0XXA Fall on same level from slipping, tripping and stumbling without subsequent striking against object, initial encounter; Y92.019 Unspecified place in single-family (private) house as the place of occurrence of the external cause; Z23 Encounter for immunization; Z78.1 Physical restraint status; Z79.899 Other long term (current) drug therapy; Z88.1 Allergy status to other antibiotic agents; Z88.2 Allergy status to sulfonamides; Z80.1 Family history of malignant neoplasm of trachea, bronchus and lung; Z82.49 Family history of ischemic heart disease and other diseases of the circulatory system
CPT/HCPCS: 36415; 70450; 71045; 80053; 80307; 81001; 82803; 83605; 83735; 84100; 85025; 85610; 85730; 87040; 87077; 87086; 87186; 90714; 93005; 93010; 94640; 94667; 94799; 96374; 99291; G0378; G8978-GP; G8979-GP; J0696; J1630; J1644; J2060; J2920; J2930; J3411; J3475; J3480; J3490; J7030; J7050; J7512; J7620; S0164

== ENCOUNTER 2019-09-08 20:29 | Inpatient (IN) | payer MEDICARE, OTHER ==
[~2019-09-08 20:29] MED LIST changes: -THIAMINE HCL 500 MG in NORMAL SALINE 250 ML IV SCH
[2019-09-08] MEDS ORDERED: METHYLPREDNISOLONE INJ 125 MG/2 ML SDV IV ONE (20:46)
[2019-09-08 21:22] LABS: VENOUS BLOOD BASE EXCESS 5.7 mmol/L; VENOUS BLOOD PCO2 59.8 mmHg (35-63); VENOUS BLOOD PH 7.36 (7.30-7.42)
[2019-09-08 21:27] LABS: ABSOLUTE EOSINOPHILS # (AUTO) 0.2 10^3/uL (0.0-0.6); ABSOLUTE LYMPHOCYTES (AUTO) 1.8 10^3/uL (0.5-4.7); ABSOLUTE MONOCYTES (AUTO) 0.4 10^3/uL (0.1-1.4); EOSINOPHILS % (AUTO) 2.8 % (0-6); RED CELL DISTRIBUTION WIDTH 14.4 % (11.5-14.0); SEGMENTED NEUTROPHILS % (AUTO) 57.1 % (42-78); TOTAL CELLS COUNTED % (AUTO) 100 %
[2019-09-08 21:33] LABS: ABSOLUTE NEUT (AUTO) 3.2 10^3/uL (1.7-8.2); BASOPHILS % (AUTO) 0.8 % (0-2); HEMATOCRIT 39.8 % (37.9-51.0); LYMPHOCYTES % (AUTO) 32.1 % (13-45); MEAN CORPUSCULAR HEMOGLOBIN 33.2 pg (27.0-33.4); MEAN CORPUSCULAR HGB CONC 35.2 g/dL (32.0-36.0); MEAN CORPUSCULAR VOLUME 94 fl (80-97); MONOCYTES % (AUTO) 7.2 % (3-13); PLATELET COUNT 170 10^3/uL (150-450); RED BLOOD COUNT 4.22 10^6/uL (4.35-5.55); WHITE BLOOD COUNT 5.5 10^3/uL (4.0-10.5)
[2019-09-08 21:45] LABS: ALBUMIN 3.9 g/dL (3.5-5.0); ALKALINE PHOSPHATASE 146 U/L (38-126); ANION GAP 9 (5-19); ASPARTATE AMINO TRANSFERASE 156 U/L (17-59); BILIRUBIN,DIRECT 1.1 mg/dL (0.0-0.4); BILIRUBIN,TOTAL 1.3 mg/dL (0.2-1.3); BLOOD UREA NITROGEN 2 mg/dL (7-20); CALCIUM 8.5 mg/dL (8.4-10.2); CARBON DIOXIDE 35 mmol/L (22-30); CHLORIDE 94 mmol/L (98-107); GLUCOSE 97 mg/dL (75-110); TOTAL PROTEIN 8.8 g/dL (6.3-8.2)
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
--- NOTE | 2019-09-08 22:43 | RADIOLOGY REPORT (SQ) ---
EXAM DESCRIPTION: XR CHEST 1 VIEW COMPLETED DATE/TME: 09/08/2019 20:46 CLINICAL HISTORY: 54 years, Male, SOB COMPARISON: 12/25/2017 chest NUMBER OF VIEWS: 1 TECHNIQUE: Portable chest LIMITATIONS: None. FINDINGS: The heart size is normal. Osteopenia. Underlying COPD. Equivocal right basilar infiltrate. Scarring in the right midlung and left lung base. Atheromatous change thoracic aorta. No pneumothorax IMPRESSION: Underlying COPD. Equivocal right basilar infiltrate copyright 2010 [employer]- All Rights Reserved
[2019-09-08] MEDS ORDERED: ONDANSETRON HCL INJ/PF 4 MG/2 ML SDV IV PRN (22:51)
[2019-09-08] MEDS ORDERED: RINGERS SOLUTION,LACTATED 1,000 ML IV PRN (22:51)
[2019-09-08] MEDS ORDERED: MAG HYDROX/AL HYDROX/SIMETH SUSP 30 ML UDCUP PO PRN (22:51)
[2019-09-08] MEDS ORDERED: ACETAMINOPHEN 325 MG TABLET PO PRN (22:51)
[2019-09-08] MEDS ORDERED: MAGNESIUM HYDROXIDE SUSP 30 ML UDCUP PO PRN (22:51)
[2019-09-08] MEDS ORDERED: ONDANSETRON 4 MG TAB.RAPDIS PO PRN (22:51)
[2019-09-08 23:27] LABS: INTERNATIONAL RATION (INR) 1.08; PROTHROMBIN TIME 14.1 SEC (11.4-15.4)
[2019-09-08] MEDS ORDERED: MEROPENEM 500 MG VIAL IV PRN (23:29)
[2019-09-08] MEDS ORDERED: MEROPENEM 500 MG in NORMAL SALINE 50 ML IV ONE (23:30)
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
[2019-09-08] MEDS: LORAZEPAM 1 MG TABLET PO SCH (23:33)
[2019-09-08 23:51] LABS: URINE AMPHETAMINES SCREEN NEGATIVE; URINE BARBITURATES SCREEN NEGATIVE; URINE BENZODIAZEPINES SCREEN NEGATIVE; URINE COCAINE SCREEN NEGATIVE; URINE MARIJUANA (THC) SCREEN NEGATIVE; URINE METHADONE SCREEN NEGATIVE; URINE PHENCYCLIDINE SCREEN NEGATIVE
[2019-09-09] MEDS ORDERED: INFLUENZA QUAD (6MOS+) 2019-20 VAC 0.5 ML SYR IM ONE (03:07)
[2019-09-09 04:48] LABS: MEAN CORPUSCULAR VOLUME 95 fl (80-97)
[2019-09-09 04:59] LABS: ABSOLUTE LYMPHOCYTES (AUTO) 0.3 10^3/uL (0.5-4.7); ABSOLUTE NEUT (AUTO) 2.4 10^3/uL (1.7-8.2); BASOPHILS % (AUTO) 0.1 % (0-2); EOSINOPHILS % (AUTO) 0.1 % (0-6); HEMATOCRIT 38.9 % (37.9-51.0); HEMOGLOBIN 13.2 g/dL (13.5-17.0); LYMPHOCYTES % (AUTO) 10.8 % (13-45); MEAN CORPUSCULAR HEMOGLOBIN 32.2 pg (27.0-33.4); MONOCYTES % (AUTO) 1.2 % (3-13); PLATELET COUNT 118 10^3/uL (150-450); RED BLOOD COUNT 4.11 10^6/uL (4.35-5.55); RED CELL DISTRIBUTION WIDTH 14.4 % (11.5-14.0); SEGMENTED NEUTROPHILS % (AUTO) 87.8 % (42-78); TOTAL CELLS COUNTED % (AUTO) 100 %
[2019-09-09 05:00] LABS: WHITE BLOOD COUNT 2.7 10^3/uL (4.0-10.5)
[2019-09-09 05:08] LABS: ALBUMIN 3.4 g/dL (3.5-5.0); ALKALINE PHOSPHATASE 161 U/L (38-126); ANION GAP 13 (5-19); ASPARTATE AMINO TRANSFERASE 113 U/L (17-59); BILIRUBIN,DIRECT 0.5 mg/dL (0.0-0.4); BILIRUBIN,TOTAL 0.6 mg/dL (0.2-1.3); BLOOD UREA NITROGEN 2 mg/dL (7-20); CALCIUM 8.9 mg/dL (8.4-10.2); CARBON DIOXIDE 29 mmol/L (22-30); CHLORIDE 96 mmol/L (98-107); GLUCOSE 207 mg/dL (75-110); POTASSIUM 4.1 mmol/L (3.6-5.0); TOTAL PROTEIN 7.7 g/dL (6.3-8.2)
[2019-09-09] MEDS ORDERED: METHYLPREDNISOLONE INJ 40 MG/1 ML SDV IV SCH (06:00)
[2019-09-09] MEDS: LORAZEPAM 1 MG TABLET PO SCH ×4 (06:03→22:35)
[2019-09-09] MEDS: PANTOPRAZOLE SODIUM 40 MG TABLET.DR PO SCH ×2 (06:04→17:42)
[2019-09-09] MEDS ORDERED: MEROPENEM 500 MG VIAL ONE (06:08)
[2019-09-09] MEDS: MEROPENEM 500 MG in NORMAL SALINE 50 ML IV SCH ×3 (06:24→22:35)
--- NOTE | 2019-09-09 07:34 | EKG REPORT ---
SEVERITY:- ABNORMAL ECG - PROBABLE ANTEROSEPTAL INFARCT, AGE INDETERM : Confirmed by: Vinicio Stevens MD 09-Sep-2019 07:33:58
--- NOTE | 2019-09-09 07:35 | EKG REPORT ---
SEVERITY:- ABNORMAL ECG - SINUS RHYTHM BORDERLINE LEFT AXIS DEVIATION CONSIDER ANTEROSEPTAL INFARCT : Confirmed by: Vinicio Stevens MD 09-Sep-2019 07:34:10
[2019-09-09] MEDS: LEVALBUTEROL HCL NEB 1.25 MG/3 ML AMPUL NEB PRN (09:32)
[2019-09-09] MEDS: ENOXAPARIN SODIUM INJ 40 MG/0.4 ML DISP.SYRIN SUBCUT SCH (09:58)
[2019-09-09] MEDS: MAGNESIUM SULFATE/D5W 1 GM/100 ML RTUPB IV SCH ×2 (10:00→11:45)
[2019-09-09] MEDS: DOCUSATE SODIUM 100 MG CAPSULE PO SCH (10:00)
[2019-09-09] MEDS: HYDROCHLOROTHIAZIDE 25 MG TABLET PO SCH (10:00)
[2019-09-09] MEDS: THIAMINE HCL 100 MG TABLET PO SCH (10:01)
[2019-09-09] MEDS: LISINOPRIL 10 MG TABLET PO SCH (10:01)
[2019-09-09] MEDS: FOLIC ACID 1 MG TABLET PO SCH (10:01)
--- NOTE | 2019-09-09 14:58 | PDOC PROGRESS REPORT ---
Subjective Progress Note for:: 09/09/19 Subjective:: Patient seen in his room. He was admitted overnight for confusion. Patient has history of alcohol abuse. His last drink is much 3. There is been no evidence of alcohol withdrawal at this time. Reason For Visit: COPD EXACERBATION,PATIENT NONCOMPLIANCE,ALCOHOL Physical Exam Vital Signs: Temp Pulse Resp BP Pulse Ox 97.7 F 101 H 20 153/83 H 96 09/09/19 11:06 09/09/19 14:00 09/09/19 11:06 09/09/19 11:06 09/09/19 11:06 Intake & Output 09/08/19 09/09/19 09/10/19 06:59 06:59 06:59 Intake Total 780 Output Total 400 Balance -400 780 Weight 80.3 kg General appearance: PRESENT: no acute distress, disheveled Head exam: PRESENT: atraumatic Mouth exam: PRESENT: dry mucosa Neck exam: PRESENT: full ROM. ABSENT: JVD, tenderness Respiratory exam: PRESENT: clear to auscultation lindsey, unlabored, wheezes - Scattered Cardiovascular exam: PRESENT: RRR, +S1, +S2 GI/Abdominal exam: PRESENT: other - Distended, no fluid thrill. ABSENT: tenderness Rectal exam: PRESENT: deferred Extremities exam: ABSENT: calf tenderness Musculoskeletal exam: PRESENT: ambulatory - Unsteady Neurological exam: PRESENT: alert, awake, oriented to person, oriented to place, oriented to time Skin exam: PRESENT: mottled. ABSENT: jaundice Results Laboratory Results: 09/09/19 04:21 09/09/19 04:21 09/08/19 09/08/19 09/08/19 21:05 21:05 21:05 WBC 5.5 RBC 4.22 L Hgb 14.0 Hct 39.8 MCV 94 MCH 33.2 MCHC 35.2 RDW 14.4 H Plt Count 170 Seg Neutrophils % 57.1 VBG pH VBG pCO2 VBG HCO3 VBG Base Excess Sodium 137.8 Potassium 5.0 Chloride 94 L Carbon Dioxide 35 H Anion Gap 9 BUN 2 L Creatinine 0.45 L Est GFR ( Amer) > 60 Glucose 97 Lactic Acid 1.8 Calcium 8.5 Phosphorus Magnesium Total Bilirubin 1.3 AST 156 H Alkaline Phosphatase 146 H Ammonia Total Protein 8.8 H Albumin 3.9 TSH 09/08/19 09/08/19 09/08/19 21:05 21:05 23:57 WBC RBC Hgb Hct MCV MCH MCHC RDW Plt Count Seg Neutrophils % VBG pH 7.36 VBG pCO2 59.8 VBG HCO3 33.0 H VBG Base Excess 5.7 Sodium Potassium Chloride Carbon Dioxide Anion Gap BUN Creatinine Est GFR ( Amer) Glucose Lactic Acid Calcium Phosphorus Magnesium Total Bilirubin AST Alkaline Phosphatase Ammonia 19.1 Total Protein Albumin TSH 2.19 09/09/19 09/09/19 04:21 04:21 WBC 2.7 L D RBC 4.11 L Hgb 13.2 L Hct 38.9 MCV 95 MCH 32.2 MCHC 34.0 RDW 14.4 H Plt Count 118 L Seg Neutrophils % 87.8 H VBG pH VBG pCO2 VBG HCO3 VBG Base Excess Sodium 138.3 Potassium 4.1 Chloride 96 L Carbon Dioxide 29 Anion Gap 13 BUN 2 L Creatinine 0.40 L Est GFR ( Amer) > 60 Glucose 207 H Lactic Acid Calcium 8.9 Phosphorus 3.0 Magnesium 1.5 L Total Bilirubin 0.6 AST 113 H Alkaline Phosphatase 161 H Ammonia Total Protein 7.7 Albumin 3.4 L TSH 09/08/19 09/08/19 21:05 21:05 Creatine Kinase 38 L Troponin I < 0.012 Impressions: Chest X-Ray 09/08/19 20:46 IMPRESSION: Underlying COPD. Equivocal right basilar infiltrate copyright 2010 [employer]- All Rights Reserved Assessment and Plan - Diagnosis (1) Alcohol dependence Qualifiers: Substance use status: with intoxication Complication of substance-induced condition: with unspecified complication Qualified Code(s): F10.229 - Alcohol dependence with intoxication, unspecified Is this a current diagnosis for this admission?: Yes Plan: Will monitor for evidence of withdrawal (2) COPD exacerbation Is this a current diagnosis for this admission?: Yes Plan: Mild, will DC IV Solu-Medrol and placed on oral prednisone (3) Patient noncompliance Is this a current diagnosis for this admission?: Yes (4) Skin rash Is this a current diagnosis for this admission?: Yes (5) Tobacco dependence Is this a current diagnosis for this admission?: Yes Plan: Smoking cessation (6) Bacteremia Is this a current diagnosis for this admission?: Yes Plan: Possible contaminant ascites CNE clear-cut evidence of a source however patient is on meropenem. Will repeat blood cultures in a.m. Depending on the result will consider and pursue other testing - Plan Summary Summary: Hypomagnesemia secondary to his alcohol abuse. We will follow-up also on repeat labs after replete - Time Time Spent with patient: 15-24 minutes - Inpatient Certification Based on my medical assessment, after consideration of the patient's comorbidities, presenting symptoms, or acuity I expect that the services needed warrant INPATIENT care.: Yes Medical Necessity: Need for IV Antibiotics
[2019-09-09 16:02] LABS: ANION GAP 7 (5-19); BLOOD UREA NITROGEN 5 mg/dL (7-20); CARBON DIOXIDE 33 mmol/L (22-30); CHLORIDE 92 mmol/L (98-107); GLUCOSE 133 mg/dL (75-110); POTASSIUM 4.2 mmol/L (3.6-5.0)
[2019-09-09] MEDS: PREDNISONE 20 MG TABLET PO SCH (17:42)
[2019-09-10] MEDS: LORAZEPAM 1 MG TABLET PO SCH ×4 (06:05→22:51)
[2019-09-10] MEDS: PANTOPRAZOLE SODIUM 40 MG TABLET.DR PO SCH ×2 (06:05→17:20)
[2019-09-10] MEDS: MEROPENEM 500 MG in NORMAL SALINE 50 ML IV SCH ×3 (06:05→22:52)
[2019-09-10 06:36] LABS: ABSOLUTE LYMPHOCYTES (AUTO) 0.6 10^3/uL (0.5-4.7); ABSOLUTE MONOCYTES (AUTO) 0.4 10^3/uL (0.1-1.4); ABSOLUTE NEUT (AUTO) 4.2 10^3/uL (1.7-8.2); BASOPHILS % (AUTO) 0.2 % (0-2); EOSINOPHILS % (AUTO) 0.1 % (0-6); HEMATOCRIT 38.3 % (37.9-51.0); LYMPHOCYTES % (AUTO) 12.2 % (13-45); MEAN CORPUSCULAR HEMOGLOBIN 32.2 pg (27.0-33.4); MEAN CORPUSCULAR HGB CONC 34.1 g/dL (32.0-36.0); MEAN CORPUSCULAR VOLUME 95 fl (80-97); MONOCYTES % (AUTO) 6.8 % (3-13); PLATELET COUNT 122 10^3/uL (150-450); RED BLOOD COUNT 4.05 10^6/uL (4.35-5.55); RED CELL DISTRIBUTION WIDTH 14.1 % (11.5-14.0); SEGMENTED NEUTROPHILS % (AUTO) 80.7 % (42-78); TOTAL CELLS COUNTED % (AUTO) 100 %; WHITE BLOOD COUNT 5.2 10^3/uL (4.0-10.5)
--- NOTE | 2019-09-10 08:24 | RADIOLOGY REPORT (SQ) ---
EXAM DESCRIPTION: U/S ABDOMEN COMPLETE W/DOPPLER COMPLETED DATE/TIME: 09/10/2019 4:47 am REASON FOR STUDY: Etoh abuse, abdominal fullness COMPARISON: None. TECHNIQUE: Dynamic and static grayscale images acquired of the abdomen and recorded on PACS. Additio nal selected color Doppler and spectral images recorded. Note: Study does not meet criteria for a complete doppler/duplex scan LIMITATIONS: None. FINDINGS: PANCREAS: Obscured by bowel gas. LIVER: Echotexture is coarse with increased echogenicity consistent with fatty infiltration. LIVER VASCULATURE: Normal directional flow of the main portal vein and hepatic veins. GALLBLADDER: Gallbladder is contracted. Limited visualization. No stones. Normal wall thickness. No pericholecystic fluid. ULTRASOUND-DETECTED ROBERTS'S SIGN: Negative. INTRAHEPATIC DUCTS AND COMMON DUCT: CBD and intrahepatic ducts normal caliber. No filling defects. INFERIOR VENA CAVA: Normal flow. AORTA: No aneurysm. RIGHT KIDNEY: Suboptimal visualization. Normal size. Normal echogenicity. No solid or suspicious ma sses. No hydronephrosis. No calcifications. LEFT KIDNEY: Suboptimal visualization. Normal size. Normal echogenicity. No solid or suspicious mas ses. No hydronephrosis. No calcifications. SPLEEN:Normal size. No solid masses. PERITONEAL AND PLEURAL SPACES: No ascites or effusions. OTHER: No other significant finding. IMPRESSION: FATTY LIVER. LIMITED EVALUATION DUE TO BODY HABITUS AND BOWEL GAS. NO DETECTED ABNORMA LITY WITHIN THE LIMITS OF THE EXAM. TECHNICAL DOCUMENTATION: JOB ID: [id number] 2010 [employer]- All Rights Reserved Reading location - IP/workstation name: [email or web address]
[2019-09-10] MEDS: THIAMINE HCL 100 MG TABLET PO SCH (09:54)
[2019-09-10] MEDS: LISINOPRIL 10 MG TABLET PO SCH (09:54)
[2019-09-10] MEDS: HYDROCHLOROTHIAZIDE 25 MG TABLET PO SCH (09:54)
[2019-09-10] MEDS: FOLIC ACID 1 MG TABLET PO SCH (09:54)
[2019-09-10] MEDS: PREDNISONE 20 MG TABLET PO SCH ×2 (09:54→17:20)
[2019-09-10] MEDS: DOCUSATE SODIUM 100 MG CAPSULE PO SCH (09:54)
[2019-09-10] MEDS: ENOXAPARIN SODIUM INJ 40 MG/0.4 ML DISP.SYRIN SUBCUT SCH (09:55)
--- NOTE | 2019-09-10 11:48 | CDI QUERY ---
CDI Query CDI Review: Dear Provider: To better reflect your patients severity of illness, morbidity, and resource utilization Please specify and document in the Progress Notes and Discharge Summary if you are monitoring / treating / evaluating any of the following conditions: Query Clinical indicators Please clarify if rhabdomyolysis was: Ruled out Resolved Unable to determine Other Per H&P: .however the mottled appearance looks more like he has been laying down on his side for some time, this may in fact be the appearance of rhabdomyolysis. Patient states it is very possible that he has been passed out or sleep on his side for an unknown period of hours. The terms probable, suspected, likely, possible or still to be ruled out may be used if you are unable to determine the exact nature of a condition. Thank you, Clinical Documentation Physician Advisors RIANNA Doshi RN, BSN RN Office [phone] Office [phone]
--- NOTE | 2019-09-10 14:55 | PDOC PROGRESS REPORT ---
Subjective Progress Note for:: 09/10/19 Subjective:: Patient seen in his room. He was admitted overnight for confusion. Patient has history of alcohol abuse. His last drink is much 3. There is been no evidence of alcohol withdrawal at this time. 09/09 Patient seen and examined. Says he is feeling better Reason For Visit: COPD EXACERBATION,PATIENT NONCOMPLIANCE,ALCOHOL Physical Exam Vital Signs: Temp Pulse Resp BP Pulse Ox 97.4 F 99 18 143/84 H 97 09/10/19 08:01 09/10/19 12:25 09/10/19 12:25 09/10/19 08:56 09/10/19 12:25 Intake & Output 09/09/19 09/10/19 09/11/19 06:59 06:59 06:59 Intake Total 2090 Output Total 400 2000 Balance -400 90 Weight 80.3 kg 74.6 kg General appearance: PRESENT: no acute distress Head exam: PRESENT: atraumatic Neck exam: PRESENT: full ROM. ABSENT: JVD, tenderness Respiratory exam: PRESENT: clear to auscultation lindsey, unlabored Cardiovascular exam: PRESENT: RRR, +S1, +S2 GI/Abdominal exam: PRESENT: distended Rectal exam: PRESENT: deferred Extremities exam: PRESENT: full ROM, +1 edema Musculoskeletal exam: PRESENT: ambulatory Neurological exam: PRESENT: alert, awake, oriented to person, oriented to place, oriented to time, oriented to situation Psychiatric exam: PRESENT: appropriate affect Results Laboratory Results: 09/10/19 06:17 09/09/19 15:19 09/09/19 09/10/19 09/10/19 15:19 06:17 06:17 WBC 5.2 RBC 4.05 L Hgb 13.0 L Hct 38.3 MCV 95 MCH 32.2 MCHC 34.1 RDW 14.1 H Plt Count 122 L Seg Neutrophils % 80.7 H Sodium 132.0 L Potassium 4.2 Chloride 92 L Carbon Dioxide 33 H Anion Gap 7 BUN 5 L Creatinine 0.46 L Est GFR ( Amer) > 60 Glucose 133 H Calcium 9.0 Magnesium 1.8 09/08/19 21:05 Blood Blood Culture (PCR) - Final 09/08/19 09/08/19 21:05 21:05 Creatine Kinase 38 L Troponin I < 0.012 Impressions: Chest X-Ray 09/08/19 20:46 IMPRESSION: Underlying COPD. Equivocal right basilar infiltrate copyright 2011 [employer]- All Rights Reserved Abdomen Ultrasound 09/10/19 00:00 IMPRESSION: FATTY LIVER. LIMITED EVALUATION DUE TO BODY HABITUS AND BOWEL GAS. NO DETECTED ABNORMALITY WITHIN THE LIMITS OF THE EXAM. Assessment and Plan - Diagnosis (1) Alcohol dependence Qualifiers: Substance use status: with intoxication Complication of substance-induced condition: with unspecified complication Qualified Code(s): F10.229 - Alcohol dependence with intoxication, unspecified Is this a current diagnosis for this admission?: Yes Plan: No evidence of withdrawal (2) COPD exacerbation Is this a current diagnosis for this admission?: Yes Plan: Mild, Cont oral prednisone (3) Patient noncompliance Is this a current diagnosis for this admission?: Yes (4) Skin rash Is this a current diagnosis for this admission?: Yes (5) Tobacco dependence Is this a current diagnosis for this admission?: Yes Plan: Smoking cessation (6) Bacteremia Is this a current diagnosis for this admission?: Yes Plan: Possible contaminant no clear-cut evidence of a source however patient is on meropenem. Will repeat blood cultures in a.m. Depending on the result will consider and pursue other testing - Plan Summary Summary: Hypomagnesemia secondary to his alcohol abuse. Replete Abdominal sonogram shows fatty liver but otherwise no other significant findin gs. No evidence of cirrhosis. Although patient was initially thought to have rhabdomyolysis there is no laboratory evidence of this CPK is 38. The mottled skin there was apparently present on admission may have been due to petechiae due to his thrombocytopenia or laying on the floor - Time Time Spent with patient: 15-24 minutes Medications reviewed and adjusted accordingly: Yes Anticipated discharge: Home
[2019-09-11] MEDS: PANTOPRAZOLE SODIUM 40 MG TABLET.DR PO SCH ×2 (05:58→17:29)
[2019-09-11] MEDS: LORAZEPAM 1 MG TABLET PO SCH ×4 (05:58→23:41)
[2019-09-11] MEDS: MEROPENEM 500 MG in NORMAL SALINE 50 ML IV SCH (05:58)
[2019-09-11 06:32] LABS: ABSOLUTE MONOCYTES (AUTO) 0.5 10^3/uL (0.1-1.4); BASOPHILS % (AUTO) 0.1 % (0-2); HEMATOCRIT 37.2 % (37.9-51.0); LYMPHOCYTES % (AUTO) 17.8 % (13-45); MEAN CORPUSCULAR VOLUME 94 fl (80-97); MONOCYTES % (AUTO) 9.1 % (3-13); PLATELET COUNT 131 10^3/uL (150-450); RED BLOOD COUNT 3.94 10^6/uL (4.35-5.55); RED CELL DISTRIBUTION WIDTH 13.9 % (11.5-14.0); TOTAL CELLS COUNTED % (AUTO) 100 %; WHITE BLOOD COUNT 5.5 10^3/uL (4.0-10.5)
[2019-09-11 06:37] LABS: BLOOD UREA NITROGEN 11 mg/dL (7-20); CALCIUM 9.3 mg/dL (8.4-10.2); CHLORIDE 87 mmol/L (98-107); GLUCOSE 110 mg/dL (75-110); POTASSIUM 3.8 mmol/L (3.6-5.0)
[2019-09-11 06:43] LABS: ANION GAP 11 (5-19)
[2019-09-11 06:52] LABS: CARBON DIOXIDE 36 mmol/L (22-30)
[2019-09-11] MEDS: DOCUSATE SODIUM 100 MG CAPSULE PO SCH (09:10)
[2019-09-11] MEDS: LISINOPRIL 10 MG TABLET PO SCH (09:11)
[2019-09-11] MEDS: HYDROCHLOROTHIAZIDE 25 MG TABLET PO SCH (09:12)
[2019-09-11] MEDS: FOLIC ACID 1 MG TABLET PO SCH (09:12)
[2019-09-11] MEDS: THIAMINE HCL 100 MG TABLET PO SCH (09:12)
[2019-09-11] MEDS: PREDNISONE 20 MG TABLET PO SCH ×2 (09:12→17:29)
[2019-09-11] MEDS: ENOXAPARIN SODIUM INJ 40 MG/0.4 ML DISP.SYRIN SUBCUT SCH (09:12)
[2019-09-11] MEDS: LEVALBUTEROL HCL NEB 1.25 MG/3 ML AMPUL NEB PRN (10:32)
--- NOTE | 2019-09-11 12:28 | PDOC PROGRESS REPORT ---
Subjective Progress Note for:: 09/11/19 Subjective:: Patient seen in his room. He was admitted overnight for confusion. Patient has history of alcohol abuse. His last drink is much 3. There is been no evidence of alcohol withdrawal at this time. 09/09 Patient seen and examined. Says he is feeling better 3/6 minimal tremors, no other complaints Reason For Visit: COPD EXACERBATION,PATIENT NONCOMPLIANCE,ALCOHOL Physical Exam Vital Signs: Temp Pulse Resp BP Pulse Ox 97.5 F 82 16 154/89 H 94 09/11/19 08:00 09/11/19 10:35 09/11/19 10:35 09/11/19 08:00 09/11/19 10:35 Intake & Output 09/10/19 09/11/19 09/12/19 06:59 06:59 06:59 Intake Total 2140 3279 Output Total 1999 4780 Balance 140 -1501 Weight 74.6 kg 73.8 kg General appearance: PRESENT: no acute distress, disheveled Head exam: PRESENT: atraumatic Mouth exam: PRESENT: tongue midline Respiratory exam: PRESENT: clear to auscultation lindsey. ABSENT: rhonchi, wheezes Cardiovascular exam: PRESENT: RRR, +S1, +S2 GI/Abdominal exam: PRESENT: distended, soft. ABSENT: tenderness Extremities exam: ABSENT: calf tenderness Neurological exam: PRESENT: alert, awake, oriented to person, oriented to place, oriented to time Results Laboratory Results: 09/11/19 05:22 09/11/19 05:22 09/11/19 09/11/19 05:22 05:22 WBC 5.5 RBC 3.94 L Hgb 13.0 L Hct 37.2 L MCV 94 MCH 33.0 MCHC 35.0 RDW 13.9 Plt Count 131 L Seg Neutrophils % 73.0 Sodium 134.0 L Potassium 3.8 Chloride 87 L Carbon Dioxide 36 H Anion Gap 11 BUN 11 Creatinine 0.47 L Est GFR ( Amer) > 60 Glucose 110 Calcium 9.3 09/08/19 21:05 Blood Blood Culture (PCR) - Final 09/08/19 09/08/19 21:05 21:05 Creatine Kinase 38 L Troponin I < 0.012 Impressions: Chest X-Ray 09/08/19 20:46 IMPRESSION: Underlying COPD. Equivocal right basilar infiltrate copyright 2011 [employer]- All Rights Reserved Abdomen Ultrasound 09/10/19 00:00 IMPRESSION: FATTY LIVER. LIMITED EVALUATION DUE TO BODY HABITUS AND BOWEL GAS. NO DETECTED ABNORMALITY WITHIN THE LIMITS OF THE EXAM. Assessment and Plan - Diagnosis (1) Alcohol dependence Qualifiers: Substance use status: with intoxication Complication of substance-induced condition: with unspecified complication Qualified Code(s): F10.229 - Alcohol dependence with intoxication, unspecified Is this a current diagnosis for this admission?: Yes Plan: Minimal tremors, no full blown withdrawal (2) COPD exacerbation Is this a current diagnosis for this admission?: Yes Plan: Mild, Cont oral prednisone (3) Patient noncompliance Is this a current diagnosis for this admission?: Yes (4) Skin rash Is this a current diagnosis for this admission?: Yes Plan: resolving (5) Tobacco dependence Is this a current diagnosis for this admission?: Yes Plan: Smoking cessation counselling provided (6) Bacteremia Is this a current diagnosis for this admission?: Yes - Plan Summary Summary: Hypomagnesemia secondary to his alcohol abuse. Replete Abdominal sonogram shows fatty liver but otherwise no other significant findings. No evidence of cirrhosis. Although patient was initially thought to have rhabdomyolysis there is no laboratory evidence of this CPK is 38. The mottled skin there was apparently present on admission may have been due to petechiae due to his thrombocytopenia or laying on the floor 3/6 Repeat blood cultures negative, will dc Meropenem, no clinical evidence of bacteremia - Time Time Spent with patient: 15-24 minutes Medications reviewed and adjusted accordingly: Yes Anticipated discharge: SNF Within: when bed available
[2019-09-12 03:53] LABS: APPEARANCE,URINE CLEAR; BILIRUBIN,URINE NEGATIVE (NEGATIVE); COLOR,URINE YELLOW; GLUCOSE, URINE NEGATIVE (NEGATIVE); KETONES,URINE NEGATIVE (NEGATIVE); PROTEIN,URINE NEGATIVE (NEGATIVE); URINE SPECIFIC GRAVITY 1.005; UROBILINOGEN,URINE NEGATIVE mg/dL (<2.0)
[2019-09-12] MEDS: LORAZEPAM 1 MG TABLET PO SCH ×4 (05:22→22:47)
[2019-09-12] MEDS: PANTOPRAZOLE SODIUM 40 MG TABLET.DR PO SCH ×2 (05:23→16:55)
[2019-09-12] MEDS: LISINOPRIL 10 MG TABLET PO SCH (09:51)
[2019-09-12] MEDS: THIAMINE HCL 100 MG TABLET PO SCH (09:51)
[2019-09-12] MEDS: PREDNISONE 20 MG TABLET PO SCH (09:51)
[2019-09-12] MEDS: HYDROCHLOROTHIAZIDE 25 MG TABLET PO SCH (09:51)
[2019-09-12] MEDS: FOLIC ACID 1 MG TABLET PO SCH (09:52)
[2019-09-12] MEDS: DOCUSATE SODIUM 100 MG CAPSULE PO SCH (09:52)
[2019-09-12] MEDS: ENOXAPARIN SODIUM INJ 40 MG/0.4 ML DISP.SYRIN SUBCUT SCH (09:52)
--- NOTE | 2019-09-12 13:34 | PDOC PROGRESS REPORT ---
Subjective Progress Note for:: 09/12/19 Subjective:: Patient seen in his room. He was admitted overnight for confusion. Patient has history of alcohol abuse. His last drink is much 3. There is been no evidence of alcohol withdrawal at this time. 09/09 Patient seen and examined. Says he is feeling better 09/10 minimal tremors, no other complaints 09/11 No new complaints, comfortable Reason For Visit: COPD EXACERBATION,PATIENT NONCOMPLIANCE,ALCOHOL Physical Exam Vital Signs: Temp Pulse Resp BP Pulse Ox 97.6 F 97 16 148/80 H 94 09/12/19 12:36 09/12/19 12:36 09/12/19 12:36 09/12/19 12:36 09/12/19 12:36 Intake & Output 09/11/19 09/12/19 09/13/19 06:59 06:59 07:59 Intake Total 3279 2760 Output Total 4780 4075 Balance -1501 -1315 Weight 73.8 kg 71.6 kg General appearance: PRESENT: no acute distress Head exam: PRESENT: atraumatic Eye exam: PRESENT: conjunctiva pink, EOMI. ABSENT: scleral icterus Mouth exam: PRESENT: tongue midline Neck exam: ABSENT: carotid bruit, JVD, lymphadenopathy, thyromegaly Respiratory exam: PRESENT: wheezes - occasional wheezing. ABSENT: rales, rhonchi Cardiovascular exam: PRESENT: RRR. ABSENT: diastolic murmur, rubs, systolic murmur Vascular exam: PRESENT: normal capillary refill GI/Abdominal exam: PRESENT: normal bowel sounds, soft. ABSENT: distended, guarding, mass, organolmegaly, rebound, tenderness Rectal exam: PRESENT: deferred Extremities exam: PRESENT: full ROM. ABSENT: calf tenderness, clubbing, pedal edema Neurological exam: PRESENT: alert, awake, oriented to person, oriented to place, oriented to time, oriented to situation, CN II-XII grossly intact. ABSENT: motor sensory deficit Psychiatric exam: PRESENT: appropriate affect, normal mood. ABSENT: homicidal ideation, suicidal ideation Skin exam: PRESENT: dry, intact, warm. ABSENT: cyanosis, rash Results Laboratory Results: 09/11/19 05:22 09/11/19 05:22 09/12/19 03:30 Urine Color YELLOW Urine Appearance CLEAR Urine pH 8.0 Ur Specific [place] 1.005 Urine Protein NEGATIVE Urine Glucose (UA) NEGATIVE Urine Ketones NEGATIVE Urine Blood SMALL H Urine RBC (Auto) 1 09/08/19 21:05 Blood Blood Culture (PCR) - Final 09/08/19 09/08/19 21:05 21:05 Creatine Kinase 38 L Troponin I < 0.012 Impressions: Chest X-Ray 09/08/19 20:46 IMPRESSION: Underlying COPD. Equivocal right basilar infiltrate copyright 2010 [employer]- All Rights Reserved Abdomen Ultrasound 09/10/19 00:00 IMPRESSION: FATTY LIVER. LIMITED EVALUATION DUE TO BODY HABITUS AND BOWEL GAS. NO DETECTED ABNORMALITY WITHIN THE LIMITS OF THE EXAM. Assessment and Plan - Diagnosis (1) Alcohol dependence Qualifiers: Substance use status: with intoxication Complication of substance-induced condition: with unspecified complication Qualified Code(s): F10.229 - Alcohol dependence with intoxication, unspecified Is this a current diagnosis for this admission?: Yes (2) COPD exacerbation Is this a current diagnosis for this admission?: Yes (3) Patient noncompliance Is this a current diagnosis for this admission?: Yes (4) Skin rash Is this a current diagnosis for this admission?: Yes (5) Tobacco dependence Is this a current diagnosis for this admission?: Yes (6) Bacteremia Is this a current diagnosis for this admission?: Yes - Plan Summary Summary: Hypomagnesemia secondary to his alcohol abuse. Replete Abdominal sonogram shows fatty liver but otherwise no other significant findings. No evidence of cirrhosis. Although patient was initially thought to have rhabdomyolysis there is no laboratory evidence of this CPK is 38. The mottled skin there was apparently present on admission may have been due to petechiae due to his thrombocytopenia or laying on the floor 3/6 Repeat blood cultures negative, will dc Meropenem, no clinical evidence of bacteremia 09/11 continue to taper meds and monitor off antibiotics - Time Time Spent with patient: 15-24 minutes Anticipated discharge: SNF Within: within 48 hours
[2019-09-12] MEDS: IPRATROPIUM/ALBUTEROL 0.5-2.5 MG/3 ML AMPUL NEB SCH ×2 (13:51→20:01)
[2019-09-13] MEDS: IPRATROPIUM/ALBUTEROL 0.5-2.5 MG/3 ML AMPUL NEB SCH ×4 (03:24→19:34)
[2019-09-13] MEDS: LORAZEPAM 1 MG TABLET PO SCH ×4 (06:19→22:14)
[2019-09-13] MEDS: PANTOPRAZOLE SODIUM 40 MG TABLET.DR PO SCH ×2 (06:19→16:34)
[2019-09-13] MEDS: FOLIC ACID 1 MG TABLET PO SCH (09:12)
[2019-09-13] MEDS: PREDNISONE 20 MG TABLET PO SCH (09:12)
[2019-09-13] MEDS: HYDROCHLOROTHIAZIDE 25 MG TABLET PO SCH (09:12)
[2019-09-13] MEDS: THIAMINE HCL 100 MG TABLET PO SCH (09:13)
[2019-09-13] MEDS: LISINOPRIL 10 MG TABLET PO SCH (09:13)
[2019-09-13] MEDS: ENOXAPARIN SODIUM INJ 40 MG/0.4 ML DISP.SYRIN SUBCUT SCH (09:13)
[2019-09-13] MEDS: DOCUSATE SODIUM 100 MG CAPSULE PO SCH (09:13)
--- NOTE | 2019-09-13 15:09 | PDOC PROGRESS REPORT ---
Subjective Progress Note for:: 09/13/19 Subjective:: Patient seen in his room. He was admitted overnight for confusion. Patient has history of alcohol abuse. His last drink is much 3. There is been no evidence of alcohol withdrawal at this time. 09/09 Patient seen and examined. Says he is feeling better 09/10 minimal tremors, no other complaints 09/11 No new complaints, comfortable 09/12 Denies any fever, chest pain Reason For Visit: COPD EXACERBATION,PATIENT NONCOMPLIANCE,ALCOHOL Physical Exam Vital Signs: Temp Pulse Resp BP Pulse Ox 98.0 F 79 16 110/74 99 09/13/19 11:56 09/13/19 13:52 09/13/19 13:52 09/13/19 11:56 09/13/19 13:52 Intake & Output 09/12/19 09/13/19 09/14/19 05:59 06:59 06:59 Intake Total Output Total Balance Weight General appearance: PRESENT: no acute distress Head exam: PRESENT: atraumatic, normocephalic Eye exam: PRESENT: conjunctiva pink, PERRLA. ABSENT: scleral icterus Mouth exam: PRESENT: moist, tongue midline Neck exam: ABSENT: carotid bruit, JVD, lymphadenopathy, thyromegaly Respiratory exam: PRESENT: clear to auscultation lindsey. ABSENT: rales, rhonchi, wheezes Cardiovascular exam: PRESENT: RRR, +S1, +S2. ABSENT: diastolic murmur, rubs, systolic murmur Pulses: PRESENT: normal dorsalis pedis pul Vascular exam: PRESENT: normal capillary refill GI/Abdominal exam: PRESENT: distended, normal bowel sounds, soft. ABSENT: guarding, mass, organolmegaly, rebound, tenderness Rectal exam: PRESENT: deferred Extremities exam: PRESENT: full ROM. ABSENT: calf tenderness, clubbing, pedal edema Neurological exam: PRESENT: alert, awake, oriented to person, oriented to place, oriented to time, oriented to situation, CN II-XII grossly intact. ABSENT: motor sensory deficit Psychiatric exam: PRESENT: appropriate affect, normal mood. ABSENT: homicidal ideation, suicidal ideation Skin exam: PRESENT: dry, intact, warm. ABSENT: cyanosis, rash Results Laboratory Results: 09/11/19 05:22 09/11/19 05:22 09/08/19 21:05 Blood Blood Culture (PCR) - Final 09/08/19 21:05 Blood Blood Culture - Final Aerococcus Viridans Acinetobacter Species 09/08/19 09/08/19 21:05 21:05 Creatine Kinase 38 L Troponin I < 0.012 Impressions: Chest X-Ray 09/08/19 20:46 IMPRESSION: Underlying COPD. Equivocal right basilar infiltrate copyright 2010 [employer]- All Rights Reserved Abdomen Ultrasound 09/10/19 00:00 IMPRESSION: FATTY LIVER. LIMITED EVALUATION DUE TO BODY HABITUS AND BOWEL GAS. NO DETECTED ABNORMALITY WITHIN THE LIMITS OF THE EXAM. Assessment and Plan - Diagnosis (1) Alcohol dependence Qualifiers: Substance use status: with intoxication Complication of substance-induced condition: with unspecified complication Qualified Code(s): F10.229 - Alcohol dependence with intoxication, unspecified Is this a current diagnosis for this admission?: Yes (2) COPD exacerbation Is this a current diagnosis for this admission?: Yes (3) Patient noncompliance Is this a current diagnosis for this admission?: Yes (4) Skin rash Is this a current diagnosis for this admission?: Yes (5) Tobacco dependence Is this a current diagnosis for this admission?: Yes (6) Bacteremia Is this a current diagnosis for this admission?: Yes - Plan Summary Summary: Hypomagnesemia secondary to his alcohol abuse. Replete Abdominal sonogram shows fatty liver but otherwise no other significant findings. No evidence of cirrhosis. Although patient was initially thought to have rhabdomyolysis there is no laboratory evidence of this CPK is 38. The mottled skin there was apparently present on admission may have been due to petechiae due to his thrombocytopenia or laying on the floor 09/10 Repeat blood cultures negative, will dc Meropenem, no clinical evidence of b acteremia 09/11 continue to taper meds and monitor off antibiotics 09/12 patient is medically stable. At this point awaiting discharge. Plan will be rehab discharge in a.m. - Time Time Spent with patient: Less than 15 minutes Medications reviewed and adjusted accordingly: Yes Anticipated discharge: Home Within: within 24 hours
[2019-09-13 16:44] LABS: ANION GAP 6 (5-19); BLOOD UREA NITROGEN 12 mg/dL (7-20); CALCIUM 9.2 mg/dL (8.4-10.2); CARBON DIOXIDE 39 mmol/L (22-30); CHLORIDE 87 mmol/L (98-107); GLUCOSE 145 mg/dL (75-110); POTASSIUM 3.7 mmol/L (3.6-5.0)
[2019-09-14] MEDS: IPRATROPIUM/ALBUTEROL 0.5-2.5 MG/3 ML AMPUL NEB SCH ×3 (02:33→14:09)
[2019-09-14] MEDS: LORAZEPAM 1 MG TABLET PO SCH ×2 (04:58→12:32)
[2019-09-14] MEDS: PANTOPRAZOLE SODIUM 40 MG TABLET.DR PO SCH (04:59)
[2019-09-14 05:48] LABS: ABSOLUTE EOSINOPHILS # (AUTO) 0.1 10^3/uL (0.0-0.6); ABSOLUTE LYMPHOCYTES (AUTO) 1.4 10^3/uL (0.5-4.7); ABSOLUTE MONOCYTES (AUTO) 0.7 10^3/uL (0.1-1.4); ABSOLUTE NEUT (AUTO) 5.6 10^3/uL (1.7-8.2); BASOPHILS % (AUTO) 0.2 % (0-2); EOSINOPHILS % (AUTO) 1.2 % (0-6); HEMATOCRIT 38.4 % (37.9-51.0); HEMOGLOBIN 12.9 g/dL (13.5-17.0); LYMPHOCYTES % (AUTO) 17.6 % (13-45); MEAN CORPUSCULAR HEMOGLOBIN 32.4 pg (27.0-33.4); MEAN CORPUSCULAR HGB CONC 33.5 g/dL (32.0-36.0); MEAN CORPUSCULAR VOLUME 97 fl (80-97); MONOCYTES % (AUTO) 8.7 % (3-13); PLATELET COUNT 135 10^3/uL (150-450); RED BLOOD COUNT 3.97 10^6/uL (4.35-5.55); RED CELL DISTRIBUTION WIDTH 13.8 % (11.5-14.0); SEGMENTED NEUTROPHILS % (AUTO) 72.3 % (42-78); TOTAL CELLS COUNTED % (AUTO) 100 %; WHITE BLOOD COUNT 7.7 10^3/uL (4.0-10.5)
[2019-09-14] MEDS: DOCUSATE SODIUM 100 MG CAPSULE PO SCH (09:34)
[2019-09-14] MEDS: LISINOPRIL 10 MG TABLET PO SCH (09:35)
[2019-09-14] MEDS: THIAMINE HCL 100 MG TABLET PO SCH (09:36)
[2019-09-14] MEDS: PREDNISONE 20 MG TABLET PO SCH (09:36)
[2019-09-14] MEDS: FOLIC ACID 1 MG TABLET PO SCH (09:36)
[2019-09-14] MEDS: ENOXAPARIN SODIUM INJ 40 MG/0.4 ML DISP.SYRIN SUBCUT SCH (09:38)
--- NOTE | 2019-09-14 11:57 | PDOC TRANSFER SUMMARY ---
Impression - Admit/DC Date/PCP Admission Date/Primary Care Provider: 09/08/19 23:45 Discharge Date: 09/14/19 - Discharge Diagnosis (1) Alcohol dependence Is this a current diagnosis for this admission?: Yes (2) COPD exacerbation Is this a current diagnosis for this admission?: Yes (3) Patient noncompliance Is this a current diagnosis for this admission?: Yes (4) Skin rash Is this a current diagnosis for this admission?: Yes (5) Tobacco dependence Is this a current diagnosis for this admission?: Yes (6) Bacteremia Is this a current diagnosis for this admission?: Yes - Assessment Summary: Hypomagnesemia secondary to his alcohol abuse. Replete Abdominal sonogram shows fatty liver but otherwise no other significant findings. No evidence of cirrhosis. Although patient was initially thought to have rhabdomyolysis there is no laboratory evidence of this CPK is 38. The mottled skin there was apparently present on admission may have been due to petechiae due to his thrombocytopenia or laying on the floor 09/10 Repeat blood cultures negative, will dc Meropenem, no clinical evidence of bacteremia 09/11 continue to taper meds and monitor off antibiotics 09/12 patient is medically stable. At this point awaiting discharge. Plan will be rehab discharge in a.m. - Additional Information Resuscitation Status: Full Code Discharge Diet: Regular Discharge Activity: Activity As Tolerated Referrals: HUMBLE MERRILL DO [NO LOCAL MD] - Follow up as needed Prescriptions: Prednisone [Deltasone 20 mg Tablet] 20 mg PO DAILY #3 tablet Fosinopril Sodium 20 mg PO DAILY #30 tablet Home Medications: Folic Acid [Folvite 1 mg Tablet] 1 mg PO DAILY tablet 09/14/19 Fosinopril Sodium 20 mg PO DAILY #30 tablet 09/14/19 Ipratropium/Albuterol Sulfate [Duoneb 3 ml Ampul] 3 ml NEB RTQ6 vial.neb 09/14/19 Prednisone [Deltasone 20 mg Tablet] 20 mg PO DAILY #3 tablet 09/14/19 History of Present Illiness History of Present Illness: JOEY TORRES II is a 54 year old male WHITNEY TORRES II is a 54 year old male who was brought in by EMS at the request of 2 family members for spinal infection of his right leg as well as shortness of breath. Patient lives alone in a trailer and according to the patient as well as the 2 nieces he drinks at least 15 beers every day and smokes 2 packs of cigarettes per day.. According to the family if there are friends of her he will drink more than 15 beers daily.. Concerned that he may have some sort of infection on his right leg and his right chest wall because of the mottled appearance. They thought it may be coming from a kerosene heater or propane heater of some type, however the mottled appearance looks more like he has been laying down on his side for some time, this may in fact be the appearance of rhabdomyolysis. Patient states it is very possible that he has been passed out or sleep on his side for an unknown period of hours. Evidently family checks on him every few days. Night patient's blood alcohol is 290. AST is elevated at 156 troponin is normal protein is elevated at 8.8 lactic acid is normal at 1.8. Potassium borderline high at 5.0 BUN is normal at 2 creatinine 0.45. Chest x-ray shows only chronic changes EKG shows slight ST changes in leads 4 5 and 6. No previous EKGs to compare to, patient denies chest pain.. Patient is going to be admitted to the hospital for further lab work as well as IV fluids, thiamine folic acid cover for alcohol withdrawal.. Family would like patient to possibly go to rehab following discharge from the hospital. Patient is debilitated due to his alcohol abuse. Hospital Course Hospital Course: Patient presents emergency room with complaints of difficulty breathing. He was admitted with a COPD exacerbation. Patient also has a history of alcohol dependency and was intoxicated on initial admission. Patient was treated with bronchodilators, steroids and received as needed benzodiazepines, as well as thiamine and folic acid. He actually did not have any evidence of full blown withdrawal while in hospital. His initial alcohol level on admission was 290. An abdominal ultrasound done revealed fatty liver but otherwise no other significant findings. He has been somewhat hyponatremic with hypochloremia thought to be secondary to hydrochlorothiazide use and this has been dis continued. Will suggest follow-up BMP as outpatient to document resolution of electrolyte imbalance. We will also follow-up on magnesium level which was low but corrected while in hospital. Patient has otherwise been hemodynamically stable it is felt that he needs rehabilitation prior to discharge home. Continued alcohol and tobacco cessation counseling is also advised Physical Exam Vital Signs: Temp Pulse Resp BP Pulse Ox 98.0 F 82 16 130/77 H 98 09/14/19 08:00 09/14/19 08:33 09/14/19 08:33 09/14/19 08:00 09/14/19 08:33 Intake & Output 09/13/19 09/14/19 09/15/19 06:59 06:59 06:59 Intake Total 2606 Output Total 1700 Balance 906 Weight 73.2 kg General appearance: PRESENT: no acute distress, disheveled, thin Respiratory exam: PRESENT: clear to auscultation lindsey, unlabored Cardiovascular exam: PRESENT: RRR, +S1, +S2 GI/Abdominal exam: PRESENT: distended, normal bowel sounds. ABSENT: tenderness Rectal exam: PRESENT: deferred Neurological exam: PRESENT: alert, awake, oriented to person, oriented to place, oriented to time, oriented to situation, CN II-XII grossly intact Psychiatric exam: PRESENT: appropriate affect Results Laboratory Results: WBC 7.7 10^3/uL (4.0-10.5) 09/14/19 04:40 RBC 3.97 10^6/uL (4.35-5.55) L 09/14/19 04:40 Hgb 12.9 g/dL (13.5-17.0) L 09/14/19 04:40 Hct 38.4 % (37.9-51.0) 09/14/19 04:40 MCV 97 fl (80-97) 09/14/19 04:40 MCH 32.4 pg (27.0-33.4) 09/14/19 04:40 MCHC 33.5 g/dL (32.0-36.0) 09/14/19 04:40 RDW 13.8 % (11.5-14.0) 09/14/19 04:40 Plt Count 135 10^3/uL (150-450) L 09/14/19 04:40 Lymph % (Auto) 17.6 % (13-45) 09/14/19 04:40 [place] % (Auto) 8.7 % (3-13) 09/14/19 04:40 Eos % (Auto) 1.2 % (0-6) 09/14/19 04:40 Baso % (Auto) 0.2 % (0-2) 09/14/19 04:40 Absolute Neuts (auto) 5.6 10^3/uL (1.7-8.2) 09/14/19 04:40 Absolute Lymphs (auto) 1.4 10^3/uL (0.5-4.7) 09/14/19 04:40 Absolute Monos (auto) 0.7 10^3/uL (0.1-1.4) 09/14/19 04:40 Absolute Eos (auto) 0.1 10^3/uL (0.0-0.6) 09/14/19 04:40 Absolute Basos (auto) 0.0 10^3/uL (0.0-0.2) 09/14/19 04:40 Seg Neutrophils % 72.3 % (42-78) 09/14/19 04:40 PT 14.1 SEC (11.4-15.4) 09/08/19 21:05 INR 1.08 09/08/19 21:05 APTT 33.6 SEC (23.5-35.8) 09/09/19 04:21 VBG pH 7.36 (7.30-7.42) 09/08/19 21:05 VBG pCO2 59.8 mmHg (35-63) 09/08/19 21:05 VBG HCO3 33.0 mmol/L (20-32) H 09/08/19 21:05 VBG Base Excess 5.7 mmol/L 09/08/19 21:05 Sodium 132.1 mmol/L (137-145) L 09/13/19 15:50 Potassium 3.7 mmol/L (3.6-5.0) 09/13/19 15:50 Chloride 87 mmol/L (98-107) L 09/13/19 15:50 Carbon Dioxide 39 mmol/L (22-30) H 09/13/19 15:50 Anion Gap 6 (5-19) 09/13/19 15:50 BUN 12 mg/dL (7-20) 09/13/19 15:50 Creatinine 0.54 mg/dL (0.52-1.25) 09/13/19 15:50 Est GFR ( Amer) > 60 (>60) 09/13/19 15:50 Est GFR (MDRD) Non-Af > 60 (>60) 09/13/19 15:50 Glucose 145 mg/dL (75-110) H 09/13/19 15:50 Lactic Acid 1.8 mmol/L (0.7-2.1) 09/08/19 21:05 Calcium 9.2 mg/dL (8.4-10.2) 09/13/19 15:50 Phosphorus 3.0 mg/dL (2.5-4.5) 09/09/19 04:21 Magnesium 1.8 mg/dL (1.6-2.3) 09/10/19 06:17 Total Bilirubin 0.6 mg/dL (0.2-1.3) 09/09/19 04:21 Direct Bilirubin 0.5 mg/dL (0.0-0.4) H 09/09/19 04:21 Neonat Total Bilirubin Not Reportable 09/09/19 04:21 Neonat Direct Bilirubin Not Reportable 09/09/19 04:21 Neonat Indirect Bili Not Reportable 09/09/19 04:21 AST 113 U/L (17-59) H 09/09/19 04:21 ALT 23 U/L (<50) 09/09/19 04:21 Alkaline Phosphatase 161 U/L (38-126) H 09/09/19 04:21 Ammonia 19.1 umol/L (9-33) 09/08/19 23:57 Lactate Dehydrogenase 210 U/L (120-246) 09/08/19 21:05 Creatine Kinase 38 U/L (55-170) L 09/08/19 21:05 Troponin I < 0.012 ng/mL 09/08/19 21:05 Total Protein 7.7 g/dL (6.3-8.2) 09/09/19 04:21 Albumin 3.4 g/dL (3.5-5.0) L 09/09/19 04:21 TSH 2.19 uIU/mL (0.47-4.68) 09/08/19 21:05 Urine Color YELLOW 09/12/19 03:30 Urine Appearance CLEAR 09/12/19 03:30 Urine pH 8.0 (5.0-9.0) 09/12/19 03:30 Ur Specific [place] 1.005 09/12/19 03:30 Urine Protein NEGATIVE mg/dL (NEGATIVE) 09/12/19 03:30 Urine Glucose (UA) NEGATIVE mg/dL (NEGATIVE) 09/12/19 03:30 Urine Ketones NEGATIVE mg/dL (NEGATIVE) 09/12/19 03:30 Urine Blood SMALL (NEGATIVE) H 09/12/19 03:30 Urine Nitrite (Reflex) NEGATIVE (NEGATIVE) 09/12/19 03:30 Urine Bilirubin NEGATIVE (NEGATIVE) 09/12/19 03:30 Urine Urobilinogen NEGATIVE mg/dL (<2.0) 09/12/19 03:30 Leukocyte Esterase Rfl NEGATIVE (NEGATIVE) 09/12/19 03:30 Urine RBC (Auto) 1 /HPF 09/12/19 03:30 Urine WBC (Reflex) < 1 /HPF 09/12/19 03:30 Squamous Epi Cells Auto <1 /HPF 09/12/19 03:30 Urine Mucus (Auto) RARE /LPF 09/12/19 03:30 Urine Ascorbic Acid NEGATIVE (NEGATIVE) 09/12/19 03:30 Urine Opiates Screen NEGATIVE 09/08/19 23:27 Urine Methadone Screen NEGATIVE 09/08/19 23:27 Ur Barbiturates Screen NEGATIVE 09/08/19 23:27 Ur Phencyclidine Scrn NEGATIVE 09/08/19 23:27 Ur Amphetamines Screen NEGATIVE 09/08/19 23:27 U Benzodiazepines Scrn NEGATIVE 09/08/19 23:27 Urine Cocaine Screen NEGATIVE 09/08/19 23:27 U Marijuana (THC) Screen NEGATIVE 09/08/19 23:27 Serum Alcohol 290 mg/dL (NONE DETECTED) 09/08/19 20:15 09/08/19 21:05 Troponin I < 0.012 Impressions: Chest X-Ray 09/08/19 20:46 IMPRESSION: Underlying COPD. Equivocal right basilar infiltrate copyright 2011 [employer]- All Rights Reserved Abdomen Ultrasound 09/10/19 00:00 IMPRESSION: FATTY LIVER. LIMITED EVALUATION DUE TO BODY HABITUS AND BOWEL GAS. NO DETECTED ABNORMALITY WITHIN THE LIMITS OF THE EXAM. Plan Health Concerns: Alcohol and tobacco abuse with need for continued counseling Stroke Is this a Stroke Patient?: No Acute Heart Failure - Is this a Heart Failure Patient?: No
[2019-09-14 15:53] VITALS: BP 140/82
== END 2019-09-14 16:40 | DRG 192 ==
LOC: ER 20:29 → EH 23:45 → 3S 09-09 01:21
PROVIDERS: ADMIT Hospitalist; ATTEND Hospitalist
DX: J44.1 Chronic obstructive pulmonary disease with (acute) exacerbation (principal); F10.229 Alcohol dependence with intoxication, unspecified; F17.210 Nicotine dependence, cigarettes, uncomplicated; I10 Essential (primary) hypertension; Y90.8 Blood alcohol level of 240 mg/100 ml or more; R21 Rash and other nonspecific skin eruption; E83.42 Hypomagnesemia; K76.0 Fatty (change of) liver, not elsewhere classified; D69.6 Thrombocytopenia, unspecified; Z91.19 Patient's noncompliance with other medical treatment and regimen; Z60.2 Problems related to living alone
CPT/HCPCS: 36415; 71045; 76700; 80048; 80053; 80307; 81001; 82140; 82550; 82803; 83605; 83615; 83735; 84100; 84443; 84484; 85025; 85610; 85730; 87040; 87077; 87150; 87186; 93005; 93010; 93976; 94640; 96374; 99291; 99292; J2185; J2920; J2930; J3475; J3490; J7512; J7620

== ENCOUNTER 2020-04-20 13:02 | Emergency (ER) | payer MEDICARE ==
[2020-04-20] MEDS ORDERED: NALOXONE HCL INJ 2 MG/2 ML DISP.SYRIN IV ONE (13:21)
[2020-04-20] MEDS ORDERED: NALOXONE HCL INJ 2 MG/2 ML DISP.SYRIN ONE (13:21)
[2020-04-20] MEDS ORDERED: LORAZEPAM INJ 2 MG/1 ML VIAL IV ONE ×2 (13:21→13:38)
[2020-04-20] MEDS ORDERED: LEVETIRACETAM 1000 MG/NACL-ISO 1,000 MG/100 ML RTUPB IV ONE (13:31)
[2020-04-20] MEDS ORDERED: SUCCINYLCHOLINE CHLORIDE INJ 200 MG/10 ML VIAL IV ONE ×2 (13:34→14:04)
[2020-04-20] MEDS ORDERED: PROPOFOL 1,000 MG/100 ML INFUS..BTL IV PRN (13:55)
[2020-04-20 13:59] LABS: ABSOLUTE LYMPHOCYTES (AUTO) 1.1 10^3/uL (0.5-4.7); ABSOLUTE MONOCYTES (AUTO) 0.9 10^3/uL (0.1-1.4); ABSOLUTE NEUT (AUTO) 8.8 10^3/uL (1.7-8.2); BASOPHILS % (AUTO) 0.3 % (0-2); EOSINOPHILS % (AUTO) 0.3 % (0-6); HEMATOCRIT 25.6 % (37.9-51.0); HEMOGLOBIN 8.6 g/dL (13.5-17.0); LYMPHOCYTES % (AUTO) 9.9 % (13-45); MEAN CORPUSCULAR HEMOGLOBIN 27.9 pg (27.0-33.4); MEAN CORPUSCULAR HGB CONC 33.8 g/dL (32.0-36.0); MEAN CORPUSCULAR VOLUME 82 fl (80-97); MONOCYTES % (AUTO) 8.5 % (3-13); PLATELET COUNT 204 10^3/uL (150-450); RED CELL DISTRIBUTION WIDTH 23.6 % (11.5-14.0); TOTAL CELLS COUNTED % (AUTO) 100 %; WHITE BLOOD COUNT 10.9 10^3/uL (4.0-10.5)
[2020-04-20 14:12] LABS: INTERNATIONAL RATION (INR) 1.95; PROTHROMBIN TIME 22.3 SEC (11.4-15.4)
[2020-04-20 14:13] LABS: PARTIAL THROMBOPLASTIN TIME 47.7 SEC (23.5-35.8)
[2020-04-20 14:13] LABS: APPEARANCE,URINE CLEAR; BILIRUBIN,URINE SMALL (NEGATIVE); COLOR,URINE AMBER; GLUCOSE, URINE NEGATIVE (NEGATIVE); KETONES,URINE TRACE mg/dL (NEGATIVE); PROTEIN,URINE 30 mg/dL (NEGATIVE); URINE SPECIFIC GRAVITY 1.023
[2020-04-20 14:17] LABS: ALBUMIN 3.2 g/dL (3.5-5.0); ALKALINE PHOSPHATASE 107 U/L (38-126); ANION GAP 8 (5-19); ASPARTATE AMINO TRANSFERASE 117 U/L (17-59); BILIRUBIN,DIRECT 5.1 mg/dL (0.0-0.4); BILIRUBIN,TOTAL 8.1 mg/dL (0.2-1.3); BLOOD UREA NITROGEN 17 mg/dL (7-20); CALCIUM 8.9 mg/dL (8.4-10.2); CARBON DIOXIDE 34 mmol/L (22-30); CHLORIDE 91 mmol/L (98-107); CREATINE KINASE 38 U/L (55-170); GLUCOSE 95 mg/dL (75-110); POTASSIUM 5.2 mmol/L (3.6-5.0); TOTAL PROTEIN 8.3 g/dL (6.3-8.2)
[2020-04-20 14:25] LABS: ACETAMINOPHEN < 10 ug/mL (10-30); ALCOHOL < 10 mg/dL (NONE DETECTED); SALICYLATE < 1.0 mg/dL (2.0-20.0)
[2020-04-20] MEDS ORDERED: LACTULOSE SYRUP 20 GM/30 ML UDCUP NG ONE (14:35)
[2020-04-20 14:43] LABS: URINE AMPHETAMINES SCREEN NEGATIVE; URINE BARBITURATES SCREEN NEGATIVE; URINE BENZODIAZEPINES SCREEN NEGATIVE; URINE COCAINE SCREEN NEGATIVE; URINE MARIJUANA (THC) SCREEN NEGATIVE; URINE METHADONE SCREEN NEGATIVE; URINE PHENCYCLIDINE SCREEN NEGATIVE
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
--- NOTE | 2020-04-20 14:51 | RADIOLOGY REPORT (SQ) ---
EXAM DESCRIPTION: CHEST SINGLE VIEW IMAGES COMPLETED DATE/TIME: 04/20/2020 2:42 pm REASON FOR STUDY: ams COMPARISON: 09/08/2019 EXAM PARAMETERS: NUMBER OF VIEWS: One view. TECHNIQUE: Single frontal radiographic view of the chest acquired. RADIATION DOSE: NA LIMITATIONS: None. FINDINGS: LUNGS AND PLEURA: Endotracheal tube and NG tube are in place. Tip of the NG tube is not s een but lies below the GE junction. Endotracheal tube lies 2.5 cm above the nataly. Lung almodovar are clear. No pneumothorax. Slight blunting of left costophrenic angle is noted. Small left effusion cannot be excluded. MEDIASTINUM AND HILAR STRUCTURES: No masses. Contour normal. HEART AND VASCULAR STRUCTURES: Heart normal in size. Normal vasculature. BONES: No acute findings. HARDWARE: None in the chest. OTHER: No other significant finding. IMPRESSION: Endotracheal tube and NG tube are in place as described. Possible small left effusion. TECHNICAL DOCUMENTATION: JOB ID: [id number] 2010 [employer]- All Rights Reserved Reading location - IP/workstation name: [email or web address]
[2020-04-20 14:57] LABS: ARTERIAL BLOOD BASE EXCESS 11.2 mmol/L; ARTERIAL BLOOD H2CO3 2.16 mmol/L (1.05-1.35); ARTERIAL BLOOD HCO3 38.7 mmol/L (20-24); ARTERIAL BLOOD O2 SATURATION 90.8 % (94-98); ARTERIAL BLOOD PH 7.35 (7.35-7.45); ARTERIAL BLOOD PO2 64.8 mmHg (80-100); ARTERIAL BLOOD TOTAL CO2 40.9 mmol/L (23-27)
[2020-04-20 14:57] LABS: NT PRO BNP 392 pg/mL (<125)
[2020-04-20 14:59] LABS: TROPONIN I < 0.012 ng/mL
[2020-04-20 15:00] LABS: ARTERIAL BLOOD FIO2 100%
[2020-04-20 15:03] LABS: ARTERIAL BLOOD PCO2 71.6 mmHg (35-45)
--- NOTE | 2020-04-20 15:10 | RADIOLOGY REPORT (SQ) ---
EXAM DESCRIPTION: CT HEAD WITHOUT IMAGES COMPLETED DATE/TIME: 04/20/2020 3:00 pm REASON FOR STUDY: ams COMPARISON: 06/05/2018 TECHNIQUE: Axial images acquired through the brain without intravenous contrast. Images reviewed wi th bone, brain and subdural windows. Additional sagittal and coronal reconstructions were generated. Images stored on PACS. All CT scanners at this facility use dose modulation, iterative reconstruction, and/or weight based d osing when appropriate to reduce radiation dose to as low as reasonably achievable (ALARA). [facility]: Dose Right [facility]: CareDose [facility]: Dose Right [facility]: Teradose 4D [facility]: [facility] RADIATION DOSE: CT Rad equipment meets quality standard of care and radiation dose reduction techniq ues were employed. CTDIvol: 53.2 mGy. DLP: 1044 mGy-cm. mGy. LIMITATIONS: None. FINDINGS: VENTRICLES: Prominent. CEREBRUM: No masses. No hemorrhage. No midline shift. Areas of low density in the white matter mos t likely due to chronic micro-vascular ischemic change. No evidence for acute infarction. CEREBELLUM: No masses. No hemorrhage. No alteration of density. No evidence for acute infarction. EXTRAAXIAL SPACES: Mild age-related involutional change. No fluid collections. No masses. ORBITS AND GLOBE: No intra- or extraconal masses. Normal contour of globe without masses. CALVARIUM: No fracture. PARANASAL SINUSES: No fluid or mucosal thickening. SOFT TISSUES: No mass or hematoma. OTHER: No other significant finding. IMPRESSION: MILD CHRONIC CHANGES OF ATROPHY AND MICROVASCULAR ISCHEMIA. NO ACUTE PROCESS. EVIDENCE OF ACUTE STROKE: NO. TECHNICAL DOCUMENTATION: JOB ID: [id number] Quality ID # [id number]: Final reports with documentation of one or more dose reduction techniques (e.g., Au tomated exposure control, adjustment of the mA and/or kV according to patient size, use of iterative reconstruction technique) 2010 [employer]- All Rights Reserved Reading location - IP/workstation name: [email or web address]
[2020-04-20] MEDS ORDERED: PANTOPRAZOLE SODIUM 40 MG VIAL IV ONE (15:59)
[2020-04-20] MEDS ORDERED: NORMAL SALINE 1000 ML 1,000 ML IV ONE (16:23)
[2020-04-20 17:29] VITALS: BP 118/82
[2020-04-20 17:37] LABS: ABSOLUTE BASOPHILS # (AUTO) 0.1 10^3/uL (0.0-0.2); ABSOLUTE LYMPHOCYTES (AUTO) 0.9 10^3/uL (0.5-4.7); BASOPHILS % (AUTO) 0.5 % (0-2); EOSINOPHILS % (AUTO) 0.3 % (0-6); HEMATOCRIT 24.4 % (37.9-51.0); LYMPHOCYTES % (AUTO) 8.5 % (13-45); MEAN CORPUSCULAR HEMOGLOBIN 26.9 pg (27.0-33.4); MEAN CORPUSCULAR HGB CONC 32.6 g/dL (32.0-36.0); MEAN CORPUSCULAR VOLUME 82 fl (80-97); MONOCYTES % (AUTO) 9.4 % (3-13); PLATELET COUNT 182 10^3/uL (150-450); RED BLOOD COUNT 2.96 10^6/uL (4.35-5.55); SEGMENTED NEUTROPHILS % (AUTO) 81.3 % (42-78); TOTAL CELLS COUNTED % (AUTO) 100 %; WHITE BLOOD COUNT 11.1 10^3/uL (4.0-10.5)
[2020-04-20] MEDS ORDERED: SUCCINYLCHOLINE CHLORIDE INJ 200 MG/10 ML VIAL ONE (20:17)
== END 2020-04-20 17:40 | disposition short-term general hospital (02) ==
LOC: ER 13:02
DX: K72.90 Hepatic failure, unspecified without coma (principal); G40.901 Epilepsy, unspecified, not intractable, with status epilepticus; R41.82 Altered mental status, unspecified; J44.9 Chronic obstructive pulmonary disease, unspecified; F17.200 Nicotine dependence, unspecified, uncomplicated; Z60.2 Problems related to living alone
CPT/HCPCS: 99285; 96361; 96375; 96365; 96366; 96367; 36415; 87040; 82962; 80307 ×4; 82140; 82803; 82550; 83605; 83735; 85025; 85610; 85730; 80053; 81001; 84484; 83880; 71045; 70450; 94660; 31500; J2704; A9270; J2060; C9113; J0330; J2310; J7030; J1953

== ENCOUNTER 2020-05-13 16:39 | Emergency (ER) | payer MEDICARE ==
[2020-05-13 17:41] LABS: ABSOLUTE EOSINOPHILS # (AUTO) 0.1 10^3/uL (0.0-0.6); ABSOLUTE MONOCYTES (AUTO) 0.6 10^3/uL (0.1-1.4); ABSOLUTE NEUT (AUTO) 4.1 10^3/uL (1.7-8.2); BASOPHILS % (AUTO) 0.7 % (0-2); HEMATOCRIT 25.6 % (37.9-51.0); HEMOGLOBIN 8.6 g/dL (13.5-17.0); LYMPHOCYTES % (AUTO) 17.5 % (13-45); MEAN CORPUSCULAR HEMOGLOBIN 29.2 pg (27.0-33.4); MEAN CORPUSCULAR HGB CONC 33.7 g/dL (32.0-36.0); MEAN CORPUSCULAR VOLUME 86 fl (80-97); MONOCYTES % (AUTO) 10.7 % (3-13); RED BLOOD COUNT 2.96 10^6/uL (4.35-5.55); RED CELL DISTRIBUTION WIDTH 22.9 % (11.5-14.0); SEGMENTED NEUTROPHILS % (AUTO) 69.1 % (42-78); TOTAL CELLS COUNTED % (AUTO) 100 %
[2020-05-13 17:57] LABS: PLATELET COUNT 299 10^3/uL (150-450)
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
[2020-05-13] MEDS ORDERED: LACTULOSE SYRUP 20 GM/30 ML UDCUP PO ONE ×2 (18:44→21:52)
[2020-05-13 19:37] LABS: ALBUMIN 2.7 g/dL (3.5-5.0); ALKALINE PHOSPHATASE 167 U/L (38-126); ANION GAP 9 (5-19); ASPARTATE AMINO TRANSFERASE 89 U/L (17-59); BILIRUBIN,DIRECT 1.2 mg/dL (0.0-0.4); BILIRUBIN,TOTAL 2.5 mg/dL (0.2-1.3); BLOOD UREA NITROGEN 11 mg/dL (7-20); CALCIUM 8.3 mg/dL (8.4-10.2); CARBON DIOXIDE 27 mmol/L (22-30); CHLORIDE 98 mmol/L (98-107); GLUCOSE 95 mg/dL (75-110); POTASSIUM 3.7 mmol/L (3.6-5.0); TOTAL PROTEIN 7.7 g/dL (6.3-8.2)
[2020-05-13 22:54] VITALS: BP 116/83
== END 2020-05-13 22:56 ==
LOC: ER 16:39
DX: E72.20 Disorder of urea cycle metabolism, unspecified (principal); K72.90 Hepatic failure, unspecified without coma; R41.82 Altered mental status, unspecified; I10 Essential (primary) hypertension
CPT/HCPCS: 99283; 36415; 80307; 82140; 87070; A9270; 80053; 85025

== ENCOUNTER 2020-05-29 18:30 | Emergency (ER) | payer MEDICARE, OTHER ==
[2020-05-29 19:37] LABS: INTERNATIONAL RATION (INR) 1.78; PROTHROMBIN TIME 20.8 SEC (11.4-15.4)
[2020-05-29 19:43] LABS: ALBUMIN 3.4 g/dL (3.5-5.0); ALKALINE PHOSPHATASE 196 U/L (38-126); ANION GAP 9 (5-19); ASPARTATE AMINO TRANSFERASE 103 U/L (17-59); BILIRUBIN,DIRECT 3.2 mg/dL (0.0-0.4); BILIRUBIN,TOTAL 6.6 mg/dL (0.2-1.3); BLOOD UREA NITROGEN 16 mg/dL (7-20); CALCIUM 9.1 mg/dL (8.4-10.2); CARBON DIOXIDE 32 mmol/L (22-30); CHLORIDE 96 mmol/L (98-107); GLUCOSE 113 mg/dL (75-110); POTASSIUM 3.3 mmol/L (3.6-5.0); TOTAL PROTEIN 9.4 g/dL (6.3-8.2)
[2020-05-29 19:50] LABS: ABSOLUTE BASOPHILS # (AUTO) 0.1 10^3/uL (0.0-0.2); ABSOLUTE EOSINOPHILS # (AUTO) 0.1 10^3/uL (0.0-0.6); ABSOLUTE LYMPHOCYTES (AUTO) 1.2 10^3/uL (0.5-4.7); ABSOLUTE MONOCYTES (AUTO) 0.5 10^3/uL (0.1-1.4); ABSOLUTE NEUT (AUTO) 4.3 10^3/uL (1.7-8.2); BASOPHILS % (AUTO) 1.6 % (0-2); EOSINOPHILS % (AUTO) 1.6 % (0-6); HEMATOCRIT 26.3 % (37.9-51.0); HEMOGLOBIN 9.1 g/dL (13.5-17.0); LYMPHOCYTES % (AUTO) 19.4 % (13-45); MEAN CORPUSCULAR HEMOGLOBIN 29.6 pg (27.0-33.4); MEAN CORPUSCULAR HGB CONC 34.6 g/dL (32.0-36.0); MEAN CORPUSCULAR VOLUME 86 fl (80-97); MONOCYTES % (AUTO) 8.8 % (3-13); RED BLOOD COUNT 3.07 10^6/uL (4.35-5.55); RED CELL DISTRIBUTION WIDTH 22.9 % (11.5-14.0); SEGMENTED NEUTROPHILS % (AUTO) 68.6 % (42-78); TOTAL CELLS COUNTED % (AUTO) 100 %; WHITE BLOOD COUNT 6.3 10^3/uL (4.0-10.5)
[2020-05-29 19:53] LABS: ALCOHOL < 10 mg/dL (NONE DETECTED)
[2020-05-29 19:57] LABS: VENOUS BLOOD BASE EXCESS 6.9 mmol/L; VENOUS BLOOD HCO3 31.8 mmol/L (20-32); VENOUS BLOOD PCO2 47.2 mmHg (35-63); VENOUS BLOOD PH 7.45 (7.30-7.42)
[2020-05-29 20:40] LABS: PLATELET COUNT 182 10^3/uL (150-450)
[2020-05-29 20:56] LABS: APPEARANCE,URINE CLEAR; BILIRUBIN,URINE SMALL (NEGATIVE); COLOR,URINE AMBER; GLUCOSE, URINE NEGATIVE (NEGATIVE); KETONES,URINE NEGATIVE (NEGATIVE); LEUKOCYTE ESTERASE,URINE NEGATIVE (NEGATIVE); NITRITE,URINE NEGATIVE (NEGATIVE); PROTEIN,URINE NEGATIVE (NEGATIVE); URINE SPECIFIC GRAVITY 1.019
[2020-05-29 21:31] LABS: URINE AMPHETAMINES SCREEN NEGATIVE; URINE BARBITURATES SCREEN NEGATIVE; URINE BENZODIAZEPINES SCREEN NEGATIVE; URINE COCAINE SCREEN NEGATIVE; URINE MARIJUANA (THC) SCREEN NEGATIVE; URINE METHADONE SCREEN NEGATIVE; URINE PHENCYCLIDINE SCREEN NEGATIVE
[2020-05-29] MEDS ORDERED: NORMAL SALINE 1000 ML 1,000 ML IV ONE (21:36)
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
[2020-05-29] MEDS ORDERED: POTASSIUM CHLORIDE 10 MEQ TABLET.ER PO ONE (22:01)
[2020-05-29] MEDS ORDERED: LACTULOSE SYRUP 20 GM/30 ML UDCUP PO ONE (22:03)
[2020-05-29] MEDS: MAGNESIUM SULFATE/D5W 1 GM/100 ML RTUPB IV SCH ×2 (23:00→23:46)
--- NOTE | 2020-05-29 23:20 | RADIOLOGY REPORT (SQ) ---
EXAM DESCRIPTION: X-RAY CHEST- One View CLINICAL HISTORY: Altered mental status. COMPARISON: April 20, 2020 TECHNIQUE: Single view of the chest. FINDINGS: Minimal linear opacities overlie the left midlung zone. The pulmonary vascularity is normal. The cardiomediastinal silhouette is normal in size. There are atherosclerotic vascular calcifications. No suspicious lytic or blastic osseous lesions are identified. IMPRESSION: Minimal linear opacities overlying the left midlung zone are favored to represent atelectatic change.
--- NOTE | 2020-05-30 00:39 | EKG REPORT ---
SEVERITY:- ABNORMAL ECG - SINUS RHYTHM PROLONGED QT INTERVAL : Confirmed by: Inessa Giles MD 30-May-2020 00:38:29
--- NOTE | 2020-05-30 01:52 | RADIOLOGY REPORT (SQ) ---
EXAM DESCRIPTION: Site: CT HEAD WITHOUT RP: CT HEAD WITHOUT IV CONTRAST CLINICAL HISTORY: 55 years Male; ams; TECHNIQUE: Noncontrast CT head. All CT scans at this facility use dose modulation, iterative reconstruction, and/or weight based dosing when appropriate to reduce radiation dose to as low as reasonably achievable. COMPARISON: CT 04/20/2020 FINDINGS: Brain: Confluent low-density changes in the cerebral white matter bilaterally are similar to prior study. No acute hemorrhage or mass effect. No acute cortical edema. Sinuses: Visualized portions of paranasal sinuses and mastoids are clear. Calvarium: No acute calvarial fractures or focal lesion. IMPRESSION: 1. No acute intracranial findings. 2. Nonspecific chronic white matter changes, likely chronic small vessel disease.
[2020-05-30 02:48] VITALS: BP 135/83
== END 2020-05-30 04:24 | disposition home or self-care (01) ==
LOC: ER 18:30
DX: R41.0 Disorientation, unspecified (principal); E72.20 Disorder of urea cycle metabolism, unspecified; E87.6 Hypokalemia; E83.42 Hypomagnesemia; R17 Unspecified jaundice; I10 Essential (primary) hypertension; J44.9 Chronic obstructive pulmonary disease, unspecified; Z20.828 Contact with and (suspected) exposure to other viral communicable diseases
CPT/HCPCS: 93005; 99285; 96365; 96367; 36415; 82962; 80307 ×2; 82140; 83605; 83735; 85610; 87070; 81001; 82803; 71045; 70450; 93010; U0003; A9270 ×2; J3475; J7030; C9803; 87635